=== PATIENT | female | born 1960 | race Asian ===

== ENCOUNTER 2017-07-27 08:51 | Emergency (ER) | payer OTHER ==
[~2017-07-27] VITALS: Ht 157.5 cm; Wt 62.2 kg
[~2017-07-27 08:51] MED LIST: ATEN-51 PO; INSU100C SQ; INSU300I SQ; LOVA20TA PO
[2017-07-27 08:57] VITALS: Ht 157.5 cm; Wt 62.2 kg
[2017-07-27 10:02] VITALS: BP 155/84; PULSE 82
--- NOTE | 2017-07-27 13:54 | ERD ---
ER Documentation Chief Complaint Chief Complaint Blister/wart on finger x today HPI 57-year-old female patient with a past medical history of diabetes and hypertension presents to the ED complaining of a blister or wart on her right index finger. Patient reports it slightly hurts. Reports it is slightly itchy. Denies any decrease of sensation, decreased range of motion, nausea, vomiting, injuries. Denies any fever, chills. Denies injuries or trauma. ROS All systems reviewed and are negative except as per history of present illness. Medications Home Meds Active Scripts Bacitracin* (Bacitracin Zinc Oint*) 28.35 Gm Oint, 1 APPLIC TOP BID for 5 Days, TUB APPLI TO Prov:BHUMI BEY 07/28/17 Ibuprofen* (Motrin*) 800 Mg Tab, 800 MG PO Q8 Y for PAIN AND OR ELEVATED TEMP, # 20 TAB Prov:BHUMI BEY 07/28/17 Cephalexin* (Keflex*) 500 Mg Capsule, 500 MG PO QID for 5 Days, CAP Prov:BHUMI BEY 07/28/17 Atenolol* (Atenolol*) 25 Mg Tablet, 25 MG PO DAILY, #30 TAB Prov:ABHISHEK PERRY MD 08/05/16 Reported Medications Insulin Lispro (Humalog) 100 Unit/1 Ml Cartridge, 8 UNIT SQ TID 08/04/16 Insulin Glargine,Hum.rec.anlog (Toujeo Solostar) 300 Unit/1 Ml Insuln.pen, 60 UNIT SQ QHS 02/24/16 Lovastatin* (Lovastatin*) 20 Mg Tablet, 10 MG PO HS, TAB 02/24/16 Allergies Allergies: Coded Allergies: vitamin E (d-alpha tocopherol) (Verified Allergy, Unknown, 07/27/17) PMhx/Soc Anesthesia Reaction: No Hx Neurological Disorder: No Hx Respiratory Disorders: No Hx Psychiatric Problems: No Hx Miscellaneous Medical Probl: No Hx Alcohol Use: No Hx Substance Use: No Hx Tobacco Use: No Smoking Status: Never smoker Physical Exam Vitals Vital Signs Date Time Temp Pulse Resp B/P Pulse Ox O2 Delivery O2 Flow Rate FiO2 07/27/17 10:02 82 155/84 07/27/17 08:57 97.9 73 18 176/82 99 Physical Exam Const: [id number], well-nourished. In no acute distress. Head: Atraumatic, normocephalic Eyes: Normal Conjunctiva without injection ENT: Normal external ear, nose and mouth. Neck: Full range of motion. No meningismus. Resp: Clear to auscultation bilaterally. No wheezing, rhonchi, rales, or crackles. No accessory muscle use. No retractions. Cardio: Regular rate and rhythm, no murmurs Skin: No petechiae or rashes Back: No midline tenderness. No CVA tenderness. Ext: No cyanosis, or edema. Cap refill less than 2 seconds. Distal pulses intact bilaterally. Flesh skin lesion, papule noted on the dorsal aspect of patient's right index finger, 0.5 cm in size below the PIP. No surrounding erythema or edema. No fluctuance or induration. Full range of motion of the DIP, PIP, MCP joints bilaterally. Neur: Awake and alert. Normal gait and coordination. Muscle strength 5/5. Sensation intact bilaterally. Psych: Normal Mood and Affect Procedures/MDM 57-year-old female patient with no significant past medical history presents to the ED complaining of a blister on her right finger that started earlier today. Patient is afebrile and nontoxic-appearing. Patient has normal vital signs. Differentials are likely secondary to molluscum contagiosum vs. small blister. Patient's blood pressure is 176/82. Patient reports that she just took her atenolol. Patient's blood pressure was elevated (>120/80) but appears stable without evidence of hypertension emergency or urgency. The patient was counseled about the risks of hypertension and urged to pursue outpatient monitoring and therapy within a week with their primary care physician. Low suspicion for anaphylaxis, scabies, SJS/TEN, TSS, Lyme's Disease, syphilis, RMSF , shingles, burn injury, disseminated gonorrhea chlamydia, DIC, TTP, ITP, erythema multiforme, sepsis, cellulitis, necrotizing fascitis, gangrene, meningococcemia, allergic contact dermatitis, urticaria, eczema, tinea infection , or other emergent conditions. Follow up with primary care physician in 1-2 days referral to see a word processor technician for further evaluation and treatment. Instructed patient to return to the ED sooner for any worsening symptoms. Patient's questions were answered. Patient understood and agreed with discharge plan. Patient discharged stable. Departure Diagnosis: Primary Impression: Rash and other nonspecific skin eruption Condition: Stable Patient Instructions: Molluscum Contagiosum (Adult) Referrals: [facility] YOU HAVE RECEIVED A MEDICAL SCREENING EXAM AND THE RESULTS INDICATE THAT YOU DO NOT HAVE A CONDITION THAT REQUIRES URGENT TREATMENT IN THE EMERGENCY DEPARTMENT. FURTHER EVALUATION AND TREATMENT OF YOUR CONDITION CAN WAIT UNTIL YOU ARE SEEN IN YOUR DOCTORS OFFICE WITHIN THE NEXT 1-2 DAYS. IT IS YOUR RESPONSIBILITY TO MAKE AN APPOINTMENT FOR FOLOW-UP CARE. IF YOU HAVE A PRIMARY DOCTOR --you should call your primary doctor and schedule an appointment IF YOU DO NOT HAVE A PRIMARY DOCTOR YOU CAN CALL OUR PHYSICIAN REFERRAL HOTLINE AT IF YOU CAN NOT AFFORD TO SEE A PHYSICIAN YOU CAN CHOSE FROM THE FOLLOWING [facility] [address] [facility] [address] [facility] [address] [facility] [address] [facility] [address] [facility] [facility] [address] [facility] [facility] YOU HAVE RECEIVED A MEDICAL SCREENING EXAM AND THE RESULTS INDICATE THAT YOU DO NOT HAVE A CONDITION THAT REQUIRES URGENT TREATMENT IN THE EMERGENCY DEPARTMENT. FURTHER EVALUATION AND TREATMENT OF YOUR CONDITION CAN WAIT UNTIL YOU ARE SEEN IN YOUR DOCTORS OFFICE WITHIN THE NEXT 1-2 DAYS. IT IS YOUR RESPONSIBILITY TO MAKE AN APPOINTMENT FOR FOLOW-UP CARE. IF YOU HAVE A PRIMARY DOCTOR --you should call your primary doctor and schedule and appointment IF YOU DO NOT HAVE A PRIMARY DOCTOR YOU CAN CALL OUR PHYSICIAN REFERRAL HOTLINE AT . IF YOU CAN NOT AFFORD TO SEE A PHYSICIAN YOU CAN CHOSE FROM THE FOLLOWING [facility] INSTITUTIONS: [facility] [address] [place] [address] [facility] [address] [place] [address] [facility] [address] [place] [address] [facility]/SPECIALTIES Additional Instructions: Call your primary care doctor TOMORROW for an appointment during the next 2-3 days for a referral to see a dermatolgoist.See the doctor sooner or return here if your condition worsens before your appointment time. FERNANDO TATUM PA-C Jul 27, 2017 13:54
[2017-07-28] MEDS ORDERED: CEPH-443 PO (16:07)
[2017-07-28] MEDS ORDERED: IBUP800T25 PO (16:08)
[2017-07-28] MEDS ORDERED: BACI28.34 TOP (16:09)
== END 2017-07-27 10:06 | disposition home or self-care (01) ==
LOC: FTE 08:51
DX: R21 Rash and other nonspecific skin eruption (principal); I10 Essential (primary) hypertension; E11.9 Type 2 diabetes mellitus without complications; Z79.4 Long term (current) use of insulin
CPT/HCPCS: 99283

== ENCOUNTER 2017-07-28 13:38 | Emergency (ER) | payer OTHER ==
[~2017-07-28] VITALS: Ht 157.5 cm; Wt 62.1 kg
[2017-07-28 13:45] VITALS: Ht 157.5 cm; Wt 62.1 kg
--- NOTE | 2017-07-28 15:04 | ERD ---
ER Documentation Chief Complaint Chief Complaint RT 2ND FINGER PAIN AND SWELLING, INFECTION HPI 57-year-old female presents emergency department for a bacterial/viral infection to her right index finger with swelling. Stated that she might have an infection. She was here yesterday and was advised to go to a spindraw operator. Was prescribed Keflex yesterday but she has not started taking the antibiotics yet. Stated that she was sent here by her primary care physician to have an incision and drainage. Denies headache, dizziness, blurred vision, neck pain, throat pain, difficulty swallowing, constipation, diarrhea, abdominal pain, back pain, loss of bowel bladder control, urinary symptoms, trauma, injury, falls, recent long travel, recent antibiotic use in the last 3 months, fever, chills. Allergies to vitamin E. Past medical history of diabetes. Surgical history of . Social: Works at [employer]. Denies smoking, use of alcoholic beverages, use of illegal drugs. ROS All systems reviewed and are negative except as per history of present illness. Medications Home Meds Active Scripts Bacitracin* (Bacitracin Zinc Oint*) 28.35 Gm Oint, 1 APPLIC TOP BID for 5 Days, TUB APPLI TO Prov:BHUMI BEY 07/28/17 Ibuprofen* (Motrin*) 800 Mg Tab, 800 MG PO Q8 Y for PAIN AND OR ELEVATED TEMP, # 20 TAB Prov:BHUMI BEY 07/28/17 Cephalexin* (Keflex*) 500 Mg Capsule, 500 MG PO QID for 5 Days, CAP Prov:BHUMI BEY 07/28/17 Atenolol* (Atenolol*) 25 Mg Tablet, 25 MG PO DAILY, #30 TAB Prov:ABHISHEK PERRY MD 08/05/16 Reported Medications Insulin Lispro (Humalog) 100 Unit/1 Ml Cartridge, 8 UNIT SQ TID 08/04/16 Insulin Glargine,Hum.rec.anlog (Doris Carreon) 300 Unit/1 Ml Insuln.pen, 60 UNIT SQ QHS 02/24/16 Lovastatin* (Lovastatin*) 20 Mg Tablet, 10 MG PO HS, TAB 02/24/16 Allergies Allergies: Coded Allergies: vitamin E (d-alpha tocopherol) (Verified Allergy, Unknown, 07/27/17) PMhx/Soc Anesthesia Reaction: No Hx Neurological Disorder: No Hx Respiratory Disorders: No Hx Psychiatric Problems: No Hx Miscellaneous Medical Probl: No Hx Alcohol Use: No Hx Substance Use: No Hx Tobacco Use: No Physical Exam Vitals Vital Signs Date Time Temp Pulse Resp B/P Pulse Ox O2 Delivery O2 Flow Rate FiO2 07/28/17 13:45 98.1 87 16 144/75 98 Physical Exam Const: [] Head: Atraumatic Eyes: Normal Conjunctiva ENT: Normal External Ears, Nose and Mouth. Neck: Full range of motion..~ No meningismus. Resp: Clear to auscultation bilaterally Cardio: Regular rate and rhythm, no murmurs Abd: Soft, non tender, non distended. Normal bowel sounds Skin: No petechiae or rashes. Dorsal area of the proximal phalanx of the right index finger has a blister that is measuring approximately 1 cm x 1 cm in diameter with greenish/yellowish fluid inside. No evidence of tendon injury. Has good and full function of the right hand. Right wrist is unremarkable. Right elbow is unremarkable. Right shoulder is unremarkable. Left upper extremity is unremarkable. No neurovascular deficits. Back: No midline or flank tenderness Ext: No cyanosis, or edema Neur: Awake and alert Psych: Normal Mood and Affect Results 24 hrs Current Medications Medications (Trade) Dose Ordered Sig/Paulina Route PRN Reason Start Time Stop Time Status Last Admin Dose Admin Lidocaine (Xylocaine 1% (Mdv) 20 ml) 20 ml ONCE ONCE SC 07/28/17 16:00 07/28/17 16:01 DC Bacitracin (Bacitracin Oint (Ud)) 1 applic ONCE ONCE TOP 07/28/17 16:30 07/28/17 16:31 07/28/17 16:14 Procedures/MDM 57-year-old female presents emergency department for a bacterial/viral infection to her right index finger with swelling. Stated that she might have an infection. She was here yesterday and was advised to go to a spindraw operator. Was prescribed Keflex yesterday but she has not started taking the antibiotics yet. Stated that she was sent here by her primary care physician to have an incision and drainage. Denies headache, dizziness, blurred vision, neck pain, throat pain, difficulty swallowing, constipation, diarrhea, abdominal pain, back pain, loss of bowel bladder control, urinary symptoms, trauma, injury, falls, recent long travel, recent antibiotic use in the last 3 months, fever, chills. Allergies to vitamin E. Past medical history of diabetes. Surgical history of . Social: Works at [employer]. Denies smoking, use of alcoholic beverages, use of illegal drugs. Physical exam: Dorsal area of the proximal phalanx of the right index finger has a blister that is measuring approximately 1 cm x 1 cm in diameter with greenish/yellowish fluid inside. No evidence of tendon injury. Has good and full function of the right hand. Right wrist is unremarkable. Right elbow is unremarkable. Right shoulder is unremarkable. Left upper extremity is unremarkable. No neurovascular deficits. Patient agreed with the treatment, plan of care, follow-up care. Patient is insisting for me to drain this. Procedure: Drainage of the Molluscum Contagiosum. Betadine prep. Lidocaine 1% 2 cc digital block. Drained approximately 0.7 cc of yellowish to greenish discharge. Bacitracin ointment applied. Dressing applied. Reevaluation: Good and full function of the right hand. No evidence of tendon injury. No neurovascular deficits. Final diagnosis: Molluscum Contagiosum (Adult). Bacterial skin infection. Prescription: Prescribed Keflex. Keflex. Motrin. Bacitracin ointment. Follow-up with PCP in the next 24-48 hours. PCP to refer patient to spindraw operator in the next 24-48 hours. Come back here in the emergency department for any new symptoms or any worsening of symptoms. All questions and concerns are answered. Patient verbalized understanding and agreed with the plan of care. Hemodynamically stable on discharge. Departure Diagnosis: Primary Impression: Bacterial skin infection Condition: Stable Additional Instructions: Follow-up with PCP in the next 24-48 hours. PCP to refer patient to spindraw operator in the next 24-48 hours. Come back here in the emergency department for any new symptoms or any worsening of symptoms. All questions and concerns are answered. Patient verbalized understanding and agreed with the plan of care. BHUMI BEY Jul 28, 2017 15:04
[2017-07-28] MEDS ORDERED: LIDOCAINE 1% (MDV) 20 ML INJ SC ONE (16:00)
[2017-07-28] MEDS ORDERED: CEPH-443 PO (16:07)
[2017-07-28] MEDS ORDERED: IBUP800T25 PO (16:08)
[2017-07-28] MEDS ORDERED: BACI28.34 TOP (16:09)
[2017-07-28] MEDS ORDERED: BACITRACIN 0.9 GM OINT TOP ONE (16:30)
== END 2017-07-28 16:24 | disposition home or self-care (01) ==
LOC: FTE 13:38
DX: B08.1 Molluscum contagiosum (principal); E11.9 Type 2 diabetes mellitus without complications; Z79.4 Long term (current) use of insulin
CPT/HCPCS: 10060; Z7502; Z7610

== ENCOUNTER 2017-12-03 21:26 | Emergency (ER) | END 2017-12-04 02:09 | disposition home or self-care (01) ==

== ENCOUNTER 2018-03-07 09:10 | Day surgery (SDC) | END 2018-03-07 13:42 | disposition home or self-care (01) ==

== ENCOUNTER 2019-01-02 06:59 | Emergency (ER) | payer OTHER ==
[~2019-01-02] VITALS: Ht 157.5 cm; Wt 59.1 kg
[~2019-01-02 06:59] MED LIST changes: +INSU100I33 SC; -INSU300I SQ
[2019-01-02 07:01] VITALS: Ht 157.5 cm; Wt 59.1 kg
[2019-01-02] MEDS ORDERED: SOD CHLORIDE 0.9% 1,000 ML IV STA (07:12)
[2019-01-02] MEDS ORDERED: ONDANSETRON 4 MG INJ IV STA ×2 (07:12→10:13)
[2019-01-02] MEDS ORDERED: LIDOCAINE/MYLANTA 40 ML BTL PO STA (07:12)
[2019-01-02] MEDS ORDERED: PANTOPRAZOLE 40 MG INJ IV ONE (07:30)
[2019-01-02] MEDS ORDERED: morphine 4 MG/ML VIAL IV STA (07:37)
[2019-01-02] MEDS ORDERED: HYDROmorphONE 2 MG/ML SYG IV STA (09:07)
[2019-01-02] MEDS ORDERED: KETOROLAC 30 MG INJ IV STA (09:58)
[2019-01-02] MEDS ORDERED: IBUP-1542 PO (10:01)
[2019-01-02] MEDS ORDERED: NALO4SPR NS (10:01)
[2019-01-02] MEDS ORDERED: HYDR-3980 PO (10:01)
[2019-01-02] MEDS ORDERED: TAMS-14 PO (10:01)
--- NOTE | 2019-01-02 10:03 | ERD ---
ER Documentation Chief Complaint Chief Complaint epigastric burning pain,vomiting, hx diabetes HPI Patient is a 58-year-old female with hypertension and diabetes who presents with vomiting and abdominal pain. She says "I think I have food poisoning". Patient said the symptoms started at 3 AM. The patient feels tired. She has had no treatment as of yet. She has no fevers. She has never had this before. Upon review of old medical records this is the patient's eighth visit to the ER since 2014. Her primary doctor is Dr. Galvin. ROS All systems reviewed and are negative except as per history of present illness. Medications Home Meds Active Scripts Tamsulosin Hcl* (Flomax*) 0.4 Mg Cap.er.24h, 0.4 MG PO QPM, #30 CAP Prov:KALI BUENROSTRO MD 01/02/19 Naloxone HCl nasal spray (Narcan 4 mg/0.1 mL nasal) 4 Mg [place], 4 MG NS .Q2-3MIN for OPIOID OVERDOSE, #2 SPRAY 0 Refills [place]xton 0.1 mL into one nostril. Repeat with second device into other nostril after 2-3 minutes if no or minimal response Prov:KALI BUENROSTRO MD 01/02/19 Hydrocodone/Acetaminophen ([place] 10-325 Tablet) 1 Each Tablet, 1 TAB PO Q6H PRN for PAIN, #7 TAB Prov:KALI BUENROSTRO MD 01/02/19 Ibuprofen* (Motrin*) 600 Mg Tab, 600 MG PO Q6H PRN for PAIN AND OR ELEVATED TEMP, #30 TAB Prov:KALI BUENROSTRO MD 01/02/19 Reported Medications Atenolol* (Atenolol*) 25 Mg Tablet, 25 MG PO DAILY, #30 TAB 03/07/18 Insulin Glargine,Hum.rec.anlog (Basaglar Kwikpen U-100) 100 Unit/1 Ml Insuln.pen, 70 UNIT SC, EA 03/07/18 Insulin Lispro (Humalog) 100 Unit/1 Ml Cartridge, 8 UNIT SQ TID 08/04/16 Lovastatin* (Lovastatin*) 20 Mg Tablet, 10 MG PO HS, TAB 02/24/16 Allergies Allergies: Coded Allergies: vitamin E (d-alpha tocopherol) (Verified Allergy, Unknown, 07/27/17) PMhx/Soc History of Surgery: Yes (HEMORRHOIDECTOMY, CSECTION X2) Anesthesia Reaction: No Hx Neurological Disorder: No Hx Respiratory Disorders: No Hx Cardiac Disorders: Yes (HTN, HIGH CHOLESTEROL) Hx Psychiatric Problems: No Hx Miscellaneous Medical Probl: Yes (DM) Hx Alcohol Use: No Hx Substance Use: No Hx Tobacco Use: No Smoking Status: Never smoker FmHx Family History: diabetes Physical Exam Vitals Vital Signs Date Temp Pulse Resp B/P (MAP) Pulse Ox O2 O2 Flow FiO2 Time Delivery Rate 01/02/19 76 17 182/75 99 Room Air 08:54 (110) 01/02/19 97.3 60 18 160/78 100 07:01 (105) Physical Exam Const: Moderate distress Head: Atraumatic Eyes: Normal Conjunctiva ENT: Normal External Ears, Nose and Mouth. Neck: Full range of motion. No meningismus. Resp: Clear to auscultation bilaterally Cardio: Regular rate and rhythm, no murmurs Abd: Soft, diffuse tenderness to palpation without rebound or guarding Skin: No petechiae or rashes Back: No midline or flank tenderness Ext: No cyanosis, or edema Neur: Awake and alert Psych: Normal Mood and Affect Result Diagram: 01/02/1936 01/02/19 0736 Results 24 hrs Laboratory Tests Test 01/02/19 07:35 01/02/19 07:36 01/02/19 08:12 Urine Color COLORLESS Urine Clarity CLEAR Urine pH 7.0 Urine Specific [place] 1.008 Urine Ketones TRACE mg/dL Urine Nitrite NEGATIVE mg/dL Urine Bilirubin NEGATIVE mg/dL Urine Urobilinogen NEGATIVE mg/dL Urine Leukocyte Esterase NEGATIVE [place]/ul Urine Hemoglobin NEGATIVE mg/dL Urine Glucose 2+ mg/dL Urine Total Protein NEGATIVE mg/dl White Blood Count 15.5 10^3/ul Red Blood Count 4.75 10^6/ul Hemoglobin 13.7 g/dl Hematocrit 43.4 % Mean Corpuscular Volume 91.4 fl Mean Corpuscular Hemoglobin 28.8 pg Mean Corpuscular 31.6 g/dl Hemoglobin Concent Red Cell Distribution Width 12.9 % Platelet Count 311 10^3/UL Mean Platelet Volume 10.2 fl Immature Granulocytes % 0.600 % Neutrophils % 85.7 % Lymphocytes % 9.2 % Monocytes % 4.0 % Eosinophils % 0.1 % Basophils % 0.4 % Nucleated Red Blood Cells % 0.0 /100WBC Immature Granulocytes # 0.090 10^3/ul Neutrophils # 13.3 10^3/ul Lymphocytes # 1.4 10^3/ul Monocytes # 0.6 10^3/ul Eosinophils # 0.0 10^3/ul Basophils # 0.1 10^3/ul Nucleated Red Blood Cells # 0.0 10^3/ul Sodium Level 141 mmol/L Potassium Level 3.5 mmol/L Chloride Level 104 mmol/L Carbon Dioxide Level 27 mmol/L Anion Gap 10 Blood Urea Nitrogen 11 mg/dl Creatinine 0.82 mg/dl Est Glomerular Filtrat > 60 mL/min Rate mL/min Glucose Level 239 mg/dl Calcium Level 9.5 mg/dl Total Bilirubin 0.2 mg/dl Direct Bilirubin 0.00 mg/dl Indirect Bilirubin 0.2 mg/dl Aspartate Amino 26 IU/L Transf (AST/SGOT) Alanine 24 IU/L Aminotransferase (ALT/SGPT) Alkaline Phosphatase 104 IU/L Troponin I < 0.012 ng/ml Total Protein 7.8 g/dl Albumin 4.4 g/dl Globulin 3.40 g/dl Albumin/Globulin Ratio 1.29 Lipase 53 U/L Bedside Urine pH (LAB) 7.0 Bedside Urine Protein (LAB) 2+ Bedside Urine Glucose (UA) 0.50% Bedside Urine Ketones (LAB) Negative Bedside Urine Blood 1+ Bedside Urine Nitrite (LAB) Negative Bedside Urine Leukocyte Esterase Negative (L Current Medications Medications Dose Sig/Paulina Start Time Status Last (Trade) Ordered Route PRN Stop Time Admin Dose Reason Admin Sodium 1,000 ml @ Q1H STAT 01/02/19 DC 01/02/19 Chloride 1,000 mls/hr IV 07:12 07:46 01/02/19 08:11 Ondansetron 4 mg ONCE STAT 01/02/19 DC 01/02/19 HCl (Zofran IV 07:12 07:46 Inj) 01/02/19 07:13 40 ml ONCE STAT 01/02/19 DC 01/02/19 Miscellaneous PO 07:12 07:46 Medication 01/02/19 07:13 (Gi Cocktail (2)) 40 mg ONCE ONCE 01/02/19 DC 01/02/19 Pantoprazole IV 07:30 07:46 (Protonix 01/02/19 07:31 Iv) Morphine 4 mg ONCE STAT 01/02/19 DC 01/02/19 Sulfate IV 07:37 07:46 (morphine) 01/02/19 07:38 1 mg ONCE STAT 01/02/19 DC 01/02/19 Hydromorphone IV 09:07 09:14 HCl 01/02/19 09:08 (Dilaudid) Ketorolac 30 mg ONCE STAT 01/02/19 DC 01/02/19 Tromethamine IV 09:58 10:26 (Toradol) 01/02/19 10:00 Ondansetron 4 mg ONCE STAT 01/02/19 DC 01/02/19 HCl (Zofran IV 10:13 10:26 Inj) 01/02/19 10:14 Procedures/MDM EKG read by me: Rate/Rhythm: Regular rate and rhythm at a rate of 69 Intervals: Normal Impression: No evidence of ischemia or arrhythmia Ultrasound of the gallbladder shows no surgical process per radiology. CT abdomen pelvis shows a 3 mm obstructing kidney stone per radiology Patient is a 58-year-old female presents with abdominal pain and vomiting. She was found to have an obstructing kidney stone which will likely pass on its own given the size. There is no sign of infection at this time. She feels better after treatment with pain medication and Zofran. I do not believe the patient requires admission to the hospital at this time. The patient will be given information for Dr. Brewer. She will be given a prescription for ibuprofen, [place], Narcan, and Flomax. She can return for any worsening symptoms. I doubt appendicitis, cholecystitis, pancreatitis, or bowel obstruction. Departure Diagnosis: Primary Impression: Kidney stone Additional Impression: Abdominal pain Abdominal location: generalized Qualified Codes: R10.84 - Generalized abdominal pain Condition: Fair Patient Instructions: Kidney Stone W/ Colic Referrals: ENRIQUETA BREWER MD Additional Instructions: SPECIALIST: YOU HAVE A MEDICAL CONDITION WHICH REQUIRES YOU TO SEE A SPECIALIST WITHIN THE NEXT 1-2 DAYS. PLEASE FOLLOW UP WITH YOUR PRIMARY PHYSICIAN FOR REFFERAL.IF YOU DO NOT HAVE A PRIMARY CARE PHYSICIAN AND/OR YOU CAN NOT AFFORD TO SEE A PHYSICIAN THE FOLLOWING RESOURCES HAVE BEEN SUPPLIED TO YOU. IT IS YOUR RESPONSIBILITY TO BE SEEN BY THE SPECIALIST KALI BUENROSTRO MD Jan 02, 2019 10:03
[2019-01-02 11:07] VITALS: BP 159/76; PULSE 92; RESP 17
== END 2019-01-02 11:08 | disposition home or self-care (01) ==
LOC: E/R 06:59
DX: N20.0 Calculus of kidney (principal); E11.9 Type 2 diabetes mellitus without complications; I10 Essential (primary) hypertension; Z79.4 Long term (current) use of insulin
CPT/HCPCS: 36415; 74176; 76705; 80053; 81003; 83690; 84484; 85025; 93005; 96374; 96375; 96376; C9113; J1170; J1885; J2270; J2405; J7030; Z7502; Z7610

== ENCOUNTER 2019-01-03 16:45 | Inpatient (IN) | payer OTHER ==
[~2019-01-03] VITALS: Ht 157.5 cm; Wt 61.3 kg
[~2019-01-03 16:45] MED LIST changes: +HYDR-3980 PO; +IBUP-1542 PO; +NALO4SPR NS; +TAMS-14 PO
[2019-01-03 21:27] VITALS: PULSE 121
[2019-01-03 21:35] VITALS: BP 161/67; PULSE 118; RESP 18
[2019-01-03 22:05] VITALS: Ht 157.5 cm; Wt 61.3 kg
[2019-01-03] MEDS ORDERED: HYDROCODONE/APAP (5/325) TAB PO PRN ×2 (22:30)
[2019-01-03] MEDS ORDERED: NACL 0.9% 3 ML SYG IV SCH (22:30)
[2019-01-03] MEDS: ACETAMINOPHEN 325 MG TAB PO PRN (22:57)
[2019-01-03] MEDS: SOD CHLORIDE 0.9% 1,000 ML IV SCH (22:58)
[2019-01-03] MEDS ORDERED: ONDANSETRON 4 MG INJ IV PRN (23:00)
[2019-01-03] MEDS ORDERED: DEXTROSE 50% 50 ML SYRINGE IV PRN ×2 (23:30)
[2019-01-03] MEDS ORDERED: GLUCAGON 1 MG INJ IM PRN (23:30)
[2019-01-03] MEDS ORDERED: GLUCOSE GEL 15 GRAM TUBE PO PRN ×2 (23:30)
[2019-01-03] MEDS ORDERED: GLUCOSE GEL 15 GRAM TUBE BUCCAL PRN (23:30)
[2019-01-03] MEDS: INSULIN ASPART [NOVOLOG] 3 ML PEN SC SCH (23:49)
[2019-01-03] MEDS: INSULIN GLARGINE [LANTus] (100 UNITS/ML) SYG SC SCH (23:49)
--- NOTE | 2019-01-03 23:58 | HP ---
Date/Time of Note Date/Time of Note DATE: 01/03/19 TIME: 23:58 Assessment/Plan VTE Prophylaxis Pharmacological prophylaxis: heparin Assessment/Plan Assessment/Plan 1. Left obstructive ureteral vesicle stone, with hydroureteronephrosis -IV fluid -IV antibiotic -Strain urine -Flomax -Urology consult 2. Sepsis: Secondary to left-sided pyelonephritis -See #1 -Follow-up urine culture result 3. Insulin-dependent diabetes: Adjust insulin as needed 4. Hypertension: Adjust antihypertensive as needed Results 24hrs Laboratory Tests Test 01/03/19 21:52 01/03/19 23:43 Bedside Glucose 224 H 221 H HPI/ROS Admit Date/Time Admit Date/Time Jan 03, 2019 at 21:01 Hx of Present Illness This is a 58-year-old female with a history of hypertension, insulin-dependent diabetes who initially presented on outside hospital complaining of left flank pain. Patient was found to be febrile and had a UTI. She was transferred to [facility] for insurance reason. She was actually here a day prior with similar symptoms. At that time CT abdomen/pelvis shows obstructive 3 mm stone in the left urethrovesical junction with mild hydroureteronephrosis and moderate perinephric fat stranding. Patient was discharged from the ER that time. Patient has been febrile and tachycardic here. PMH/Family/Social Past Medical History Medical History: other (See HPI) Medications Current Medications Sodium Chloride 1,000 ml @ 100 mls/hr Q10H IV Last administered on 01/03/19at 22:58; Admin Dose 100 MLS/HR; Start 01/03/19 at 22:28 IV Flush (NS 3 ml) 3 ml PER PROTOCOL IV ; Start 01/03/19 at 22:30 Acetaminophen (Tylenol Tab) 650 mg Q6H PRN PO .PAIN 1-3 OR TEMP Last administered on 01/03/19at 22:57; Admin Dose 650 MG; Start 01/03/19 at 22:30 Acetaminophen/ Hydrocodone Bitart ([place] (5/325)) 1 tab Q6H PRN PO .PAIN 4-6; Start 01/03/19 at 22:30 Acetaminophen/ Hydrocodone Bitart ([place] (5/325)) 2 tab Q6H PRN PO .PAIN 7-10; Start 01/03/19 at 22:30 Atenolol (Tenormin) 25 mg DAILY PO ; Start 01/04/19 at 09:00 Tamsulosin HCl (Flomax) 0.4 mg QPM PO ; Start 01/04/19 at 21:00 Atorvastatin Calcium (Lipitor) 10 mg DAILY@21 PO ; Start 01/04/19 at 21:00 Diagnostic Test (Pha) (Accu-Chek) 1 ea 02 XX ; Start 01/04/19 at 02:00 Insulin Glargine (Lantus) 18 units DAILY@1999 SC Last administered on 01/03/19at 23:49; Admin Dose 18 UNITS; Start 01/03/19 at 23:00 Insulin Aspart (Novolog Insulin Pen) 5 unit WITH MEALS SC ; Start 01/04/19 at 07:55 Insulin Aspart (Novolog Insulin Pen) NOVOLOG *MODERATE* ALGORITHM WITH MEALS BEDTIME SC ; Start 01/04/19 at 07:55 Ondansetron HCl (Zofran Inj) 4 mg Q6H PRN IV NAUSEA AND/OR VOMITING; Start 01/03/19 at 23:00 Ceftriaxone Sodium 50 ml @ 100 mls/hr DAILY IVPB ; Start 01/04/19 at 09:00 Miscellaneous Information 1 ea NOTE XX ; Start 01/03/19 at 23:30 Glucose (Glutose) 15 gm Q15M PRN PO DECREASED GLUCOSE; Start 01/03/19 at 23:30 Glucose (Glutose) 22.5 gm Q15M PRN PO DECREASED GLUCOSE; Start 01/03/19 at 23:30 Dextrose (D50w Syringe) 25 ml Q15M PRN IV DECREASED GLUCOSE; Start 01/03/19 at 23:30 Dextrose (D50w Syringe) 50 ml Q15M PRN IV DECREASED GLUCOSE; Start 01/03/19 at 23:30 Glucagon (Glucagen) 1 mg Q15M PRN IM DECREASED GLUCOSE; Start 01/03/19 at 23:30 Glucose (Glutose) 15 gm Q15M PRN BUCCAL DECREASED GLUCOSE; Start 01/03/19 at 23:30 Coded Allergies: vitamin E (d-alpha tocopherol) (Verified Allergy, Unknown, 07/27/17) Past Surgical History Past Surgical Hx: other (See HPI) Family History Significant Family History: no pertinent family hx Social History Alcohol Use: none Drug Use: none Exam/Review of Systems Vital Signs Vitals Vital Signs Date Temp Pulse Resp B/P (MAP) Pulse Ox O2 O2 Flow FiO2 Time Delivery Rate 01/03/19 101.4 23:43 01/03/19 121 21:27 Exam Constitutional: other (No acute distress) Head: normocephalic, atraumatic Eyes: EOMI, PERRL Respiratory: clear to auscultation, normal air movement Cardiovascular: other (Tachycardic regular rhythm) Gastrointestinal: soft, other (Left flank pain) Extremities: normal pulses MISA GOLDMAN MD Jan 03, 2019 23:58
[2019-01-04] VITALS (10 sets, daily range): BP systolic 105–156; BP diastolic 60–71; PULSE 69–114; RESP 18–20
[2019-01-04] MEDS: ACCU-CHEK XX SCH (01:59)
[2019-01-04] MEDS: ACETAMINOPHEN 325 MG TAB PO PRN ×2 (08:01→17:55)
[2019-01-04] MEDS: ATENOLOL 25 MG TAB PO SCH (08:14)
[2019-01-04] MEDS: SOD CHLORIDE 0.9% 1,000 ML IV SCH ×2 (08:16→17:56)
[2019-01-04] MEDS: INSULIN ASPART [NOVOLOG] 3 ML PEN SC SCH ×8 (08:27→21:00)
[2019-01-04] MEDS ORDERED: VANCOMYCIN IV PER PHARMACY XX SCH (09:00)
[2019-01-04] MEDS ORDERED: SOD CHLORIDE 0.9% 1,000 ML IV ONE (09:00)
[2019-01-04] MEDS ORDERED: CEFTRIAXONE 1 GM/50 ML (PMX) 50 ML IVPB SCH (09:00)
[2019-01-04] MEDS: PIPER-TAZO 3.375 GM IV (PMX) 100 ML IVPB SCH ×4 (10:48→23:57)
[2019-01-04] MEDS ORDERED: VANCOMYCIN HCL 1.25 GM in SOD CHLORIDE 0.9% 250 ML IVPB SCH (11:00)
--- NOTE | 2019-01-04 11:57 | PN ---
Date/Time of Note Date/Time of Note DATE: 01/04/19 TIME: 11:52 Assessment/Plan VTE Prophylaxis Risk score (from Ns)>0 risk: 1 SCD applied (from Nsg): Yes Pharmacological prophylaxis: other Lines/Catheters IV Catheter Type (from Nrsg): Peripheral IV Assessment/Plan Hospital Course S: Patient with fevers, on antibiotics, waiting to be seen by urology team. O: VS- see below PE: Constitutional: lying in bed, no acute distress Head: normocephalic, atraumatic Eyes: EOMI, PERRL Respiratory: clear to auscultation, normal air movement Cardiovascular: regular rhythm Gastrointestinal: soft, other (Left flank pain) Extremities: normal pulses CT scan abdomen pelvis January 02, 2019: IMPRESSION: 1. Obstructive 3 mm stone in the left ureterovesical junction resulting in mild left-sided hydroureteronephrosis with mild to moderate perinephric fat stranding . 2. Additional 3 mm stone is seen in the upper pole of left kidney. 3. Coronary artery calcifications. 4. Multiple colonic diverticulosis. 5. Mild to moderate degenerative changes of the right hip. Assessment/Plan: 58-year-old female who presents with: 1. Left obstructive ureteral vesicle stone, with hydroureteronephrosis. Urology team consulted -Continue IV fluid and IV antibiotic -Strain urine -Flomax -Follow-up recommendations from urology consult 2. Sepsis: Secondary to left-sided pyelonephritis. Patient with fevers, on antibiotic -See #1 -Follow-up urine culture result 3. Insulin-dependent diabetes: Sugars stable -Monitor, follow-up A1c, adjust insulin as needed 4. Hypertension: Stable -adjust antihypertensive as needed Result Diagram: 01/04/1942101/04/19421 Results 24hrs Laboratory Tests Test 01/03/19 21:52 01/03/19 22:24 01/03/19 23:15 01/03/19 23:43 Bedside Glucose 224 H 221 H Urine Color STRAW Urine Clarity CLEAR Urine pH 6.0 Urine Specific 1.010 [place] Urine Ketones 1+ H Urine Nitrite NEGATIVE Urine Bilirubin NEGATIVE Urine Urobilinogen NEGATIVE Urine Leukocyte 1+ H Esterase Urine Microscopic 9 H RBC Urine Microscopic 29 H WBC Urine Bacteria FEW A Urine Hemoglobin 2+ H Urine Glucose 2+ H Urine Total Protein 1+ H Lactic Acid Level 1.7 Test 01/04/19 01:58 01/04/19 04:22 01/04/19 04:43 01/04/19 07:51 Bedside Glucose 216 190 White Blood Count 10.4 # Red Blood Count 3.61 #L Hemoglobin 10.4 #L Hematocrit 32.6 #L Mean Corpuscular 90.3 Volume Mean Corpuscular 28.8 L Hemoglobin Mean Corpuscular 31.9 L Hemoglobin Concent Red Cell 13.4 Distribution Width Platelet Count 171 # Mean Platelet Volume 10.5 H Immature 0.400 Granulocytes % Neutrophils % Segmented 71 Neutrophils % (Manual) Band Neutrophils % 24 H (Manual) Lymphocytes % Lymphocytes % 3 L (Manual) Monocytes % Monocytes % (Manual) 1 Eosinophils % Basophils % Myelocytes % 1 H (Manual) Nucleated Red Blood 1 H Cells % Immature 0.040 H Granulocytes # Neutrophils # Neutrophils # 7.6 H (Manual) Band Neutrophils # 2.4 H Lymphocytes (Manual) 0.3 L Lymphocytes # Monocytes # Monocytes # (Manual) 0.1 L Eosinophils # Basophils # Myelocytes # 0.1 H Nucleated Red Blood Cells # Platelet Estimate NORMAL Anisocytosis 1+ Sodium Level 140 Potassium Level 3.8 Chloride Level 110 Carbon Dioxide Level 22 Anion Gap 8 Blood Urea Nitrogen 15 Creatinine 0.92 Est Glomerular > 60 Filtrat Rate mL/min Glucose Level 200 Lactic Acid Level 1.4 Calcium Level 7.7 L Magnesium Level 1.8 Total Bilirubin 0.2 Direct Bilirubin 0.00 Indirect Bilirubin 0.2 Aspartate Amino 24 Transf (AST/SGOT) Alanine 20 Aminotransferase (AL T/SGPT) Alkaline Phosphatase 52 Total Protein 4.8 #L Albumin 2.5 #L Globulin 2.30 Albumin/Globulin 1.08 Ratio Triglycerides Level 139 Cholesterol Level 102 LDL Cholesterol, 30 Calculated HDL Cholesterol 44 Cholesterol/HDL 2.3 Ratio Hemoglobin A1c 6.4 H Exam/Review of Systems Exam Vitals Vital Signs Date Temp Pulse Resp B/P (MAP) Pulse Ox O2 O2 Flow FiO2 Time Delivery Rate 01/04/19 99.1 08:46 01/04/19 110 08:38 01/04/19 20 135/66 94 Room Air 07:35 (89) Intake and Output 01/03/19 01/03/19 01/04/19 1515:00 23:00 07:00 IntakeIntake Total 1120 ml OutputOutput Total 700 ml BalanceBalance 420 ml Results Results 24hrs Laboratory Tests Test 01/03/19 21:52 01/03/19 22:24 01/03/19 23:15 01/03/19 23:43 Bedside Glucose 224 H 221 H Urine Color STRAW Urine Clarity CLEAR Urine pH 6.0 Urine Specific 1.010 [place] Urine Ketones 1+ H Urine Nitrite NEGATIVE Urine Bilirubin NEGATIVE Urine Urobilinogen NEGATIVE Urine Leukocyte 1+ H Esterase Urine Microscopic 9 H RBC Urine Microscopic 29 H WBC Urine Bacteria FEW A Urine Hemoglobin 2+ H Urine Glucose 2+ H Urine Total Protein 1+ H Lactic Acid Level 1.7 Test 01/04/19 01:58 01/04/19 04:22 01/04/19 04:43 01/04/19 07:51 Bedside Glucose 216 190 White Blood Count 10.4 # Red Blood Count 3.61 #L Hemoglobin 10.4 #L Hematocrit 32.6 #L Mean Corpuscular 90.3 Volume Mean Corpuscular 28.8 L Hemoglobin Mean Corpuscular 31.9 L Hemoglobin Concent Red Cell 13.4 Distribution Width Platelet Count 171 # Mean Platelet Volume 10.5 H Immature 0.400 Granulocytes % Neutrophils % Segmented 71 Neutrophils % (Manual) Band Neutrophils % 24 H (Manual) Lymphocytes % Lymphocytes % 3 L (Manual) Monocytes % Monocytes % (Manual) 1 Eosinophils % Basophils % Myelocytes % 1 H (Manual) Nucleated Red Blood 1 H Cells % Immature 0.040 H Granulocytes # Neutrophils # Neutrophils # 7.6 H (Manual) Band Neutrophils # 2.4 H Lymphocytes (Manual) 0.3 L Lymphocytes # Monocytes # Monocytes # (Manual) 0.1 L Eosinophils # Basophils # Myelocytes # 0.1 H Nucleated Red Blood Cells # Platelet Estimate NORMAL Anisocytosis 1+ Sodium Level 140 Potassium Level 3.8 Chloride Level 110 Carbon Dioxide Level 22 Anion Gap 8 Blood Urea Nitrogen 15 Creatinine 0.92 Est Glomerular > 60 Filtrat Rate mL/min Glucose Level 200 Lactic Acid Level 1.4 Calcium Level 7.7 L Magnesium Level 1.8 Total Bilirubin 0.2 Direct Bilirubin 0.00 Indirect Bilirubin 0.2 Aspartate Amino 24 Transf (AST/SGOT) Alanine 20 Aminotransferase (AL T/SGPT) Alkaline Phosphatase 52 Total Protein 4.8 #L Albumin 2.5 #L Globulin 2.30 Albumin/Globulin 1.08 Ratio Triglycerides Level 139 Cholesterol Level 102 LDL Cholesterol, 30 Calculated HDL Cholesterol 44 Cholesterol/HDL 2.3 Ratio Hemoglobin A1c 6.4 H Medications Medication Current Medications Sodium Chloride 1,000 ml @ 100 mls/hr Q10H IV Last administered on 01/04/19 08:16; Admin Dose 100 MLS/HR; Start 01/03/19 at 22:28 IV Flush (NS 3 ml) 3 ml PER PROTOCOL IV ; Start 01/03/19 at 22:30 Acetaminophen (Tylenol Tab) 650 mg Q6H PRN PO .PAIN 1-3 OR TEMP Last administered on 01/04/19 08:01; Admin Dose 650 MG; Start 01/03/19 at 22:30 Acetaminophen/ Hydrocodone Bitart ([place] (5/325)) 1 tab Q6H PRN PO .PAIN 4-6; Start 01/03/19 at 22:30 Acetaminophen/ Hydrocodone Bitart ([place] (5/325)) 2 tab Q6H PRN PO .PAIN 7-10; Start 01/03/19 at 22:30 Atenolol (Tenormin) 25 mg DAILY PO Last administered on 01/04/19 08:14; Admin Dose 25 MG; Start 01/04/19 at 09:00 Tamsulosin HCl (Flomax) 0.4 mg QPM PO ; Start 01/04/19 at 21:00 Atorvastatin Calcium (Lipitor) 10 mg DAILY@21 PO ; Start 01/04/19 at 21:00 Diagnostic Test (Pha) (Accu-Chek) 1 ea 02 XX Last administered on 01/04/19 01:59; Admin Dose 1 EA; Start 01/04/19 at 02:00 Insulin Glargine (Lantus) 18 units DAILY@2000 SC Last administered on 01/03/19 23:49; Admin Dose 18 UNITS; Start 01/03/19 at 23:00 Insulin Aspart (Novolog Insulin Pen) 5 unit WITH MEALS SC Last administered on 01/04/19 08:27; Admin Dose 5 UNIT; Start 01/04/19 at 07:55 Insulin Aspart (Novolog Insulin Pen) NOVOLOG *MODERATE* ALGORITHM WITH MEALS BEDTIME SC Last administered on 01/04/19 08:27; Admin Dose 4 UNIT; Start 01/04/19 at 07:55 Ondansetron HCl (Zofran Inj) 4 mg Q6H PRN IV NAUSEA AND/OR VOMITING; Start 01/03/19 at 23:00 Miscellaneous Information 1 ea NOTE XX ; Start 01/03/19 at 23:30 Glucose (Glutose) 15 gm Q15M PRN PO DECREASED GLUCOSE; Start 01/03/19 at 23:30 Glucose (Glutose) 22.5 gm Q15M PRN PO DECREASED GLUCOSE; Start 01/03/19 at 23:30 Dextrose (D50w Syringe) 25 ml Q15M PRN IV DECREASED GLUCOSE; Start 01/03/19 at 23:30 Dextrose (D50w Syringe) 50 ml Q15M PRN IV DECREASED GLUCOSE; Start 01/03/19 at 23:30 Glucagon (Glucagen) 1 mg Q15M PRN IM DECREASED GLUCOSE; Start 01/03/19 at 23:30 Glucose (Glutose) 15 gm Q15M PRN BUCCAL DECREASED GLUCOSE; Start 01/03/19 at 2 3:30 Vancomycin HCl (Vanco Iv Per Pharmacy) VANCOMYCIN PER PHARMACY PER PROTOCOL XX ; Start 01/04/19 at 09:00 Piperacillin Sod/ Tazobactam Sod 100 ml @ 200 mls/hr Q6 IVPB Last administered on 01/04/19at 10:48; Admin Dose 200 MLS/HR; Start 01/04/19 at 10:00 Vancomycin HCl 1.25 gm/Sodium Chloride 250 ml @ 83.333 mls/ hr ONCE IVPB ; Start 01/04/19 at 11:00; Stop 01/04/19 at 20:00 Vancomycin/Sodium Chloride 250 ml @ 125 mls/hr Q12H IVPB ; Start 01/04/19 at 23:00 ALINE RICHARDS Jan 04, 2019 11:57
--- NOTE | 2019-01-04 18:41 | CONS ---
Assessment/Plan Assessment/Plan Hospital Course (Demo Recall) 58-year-old female presented to the emergency room on 01/02/2019 with left flank pain nausea and vomiting. She underwent a CT scan of the abdomen and pelvis and that showed a 3 mm stone at the left ureterovesical junction.The patient was sent home on tamsulosin and antibiotic. The patient was having fever and went to the emergency room on 01/03/2019 at [facility] and was transferred here because of her insurance. The patient states she had no pain since her visit to the emergency room however she does have a headache and she has been coughing and having fever. Since her admission the patient did not pass the stone. She has been having some cough and fever. Impression: 3 mm stone at the left ureterovesical junction. The patient should be able to pass it on her own. She may also have urinary tract infection. She also is coughing. Plan: Continue the tamsulosin and the intravenous antibiotics. Strain the urine for stones. Get a KUB and pelvic ultrasound to see if the stone could be visualized with ultrasound of the bladder. Do a chest x-ray. Also urine culture. Consultation Date/Type/Reason Admit Date/Time Jan 03, 2019 at 21:01 Date of Consultation: Jan 04, 2019 Type of Consult Urology Reason for Consultation Distal left ureteral stone Requesting Provider: ALINE RICHARDS Date/Time of Note DATE: 01/04/19 TIME: 18:29 Hx of Present Illness 58-year-old female presented to the emergency room on 01/02/2019 with left flank pain nausea and vomiting. She underwent a CT scan of the abdomen and pelvis and that showed a 3 mm stone at the left ureterovesical junction.The patient was sent home on tamsulosin and antibiotic. The patient was having fever and went to the emergency room on 01/03/2019 at [facility] and was transferred here because of her insurance. The patient states she had no pain since her visit to the emergency room however she does have a headache and she has been coughing and having fever. Constitutional: febrile Eyes: no complaints ENT: no complaints Respiratory: other (Coughing) Cardiovascular: No chest pain Gastrointestinal: nausea (2 days earlier. No nausea or vomiting at the present) Genitourinary: flank pain (Left side); No dysuria Musculoskeletal: no complaints Skin: no complaints Neurologic: no complaints Endocrine: no complaints Psychological: no complaints Immunologic: no complaints Past Medical History Medical History: diabetes, high cholesterol, hypertension Home Meds Active Scripts Tamsulosin Hcl* (Flomax*) 0.4 Mg Cap.er.24h, 0.4 MG PO QPM, #30 CAP Prov:KALI BUENROSTRO MD 01/02/19 Naloxone HCl nasal spray (Narcan 4 mg/0.1 mL nasal) 4 Mg [place], 4 MG NS .Q2-3MIN for OPIOID OVERDOSE, #2 SPRAY 0 Refills [place] 0.1 mL into one nostril. Repeat with second device into other nostril after 2-3 minutes if no or minimal response Prov:KALI BUENROSTRO MD 01/02/19 Hydrocodone/Acetaminophen ([place] 10-325 Tablet) 1 Each Tablet, 1 TAB PO Q6H PRN for PAIN, #7 TAB Prov:KALI BUENROSTRO MD 01/02/19 Ibuprofen* (Motrin*) 600 Mg Tab, 600 MG PO Q6H PRN for PAIN AND OR ELEVATED TEMP, #30 TAB Prov:KALI BUENROSTRO MD 01/02/19 Reported Medications Atenolol* (Atenolol*) 25 Mg Tablet, 25 MG PO DAILY, #30 TAB 03/07/18 Insulin Glargine,Hum.rec.anlog (Basaglar Kwikpen U-100) 100 Unit/1 Ml Insuln.pen, 70 UNIT SC, EA 03/07/18 Insulin Lispro (Humalog) 100 Unit/1 Ml Cartridge, 10 UNIT SQ TID w/ meals 08/04/16 Lovastatin* (Lovastatin*) 20 Mg Tablet, 10 MG PO HS, TAB 02/24/16 Medications Current Medications Sodium Chloride 1,000 ml @ 100 mls/hr Q10H IV Last administered on 01/04/19at 08:16; Admin Dose 100 MLS/HR; Start 01/03/19 at 22:28 IV Flush (NS 3 ml) 3 ml PER PROTOCOL IV ; Start 01/03/19 at 22:30 Acetaminophen (Tylenol Tab) 650 mg Q6H PRN PO .PAIN 1-3 OR TEMP Last administered on 01/04/19at 17:55; Admin Dose 650 MG; Start 01/03/19 at 22:30 Acetaminophen/ Hydrocodone Bitart ([place] (5/325)) 1 tab Q6H PRN PO .PAIN 4-6; Start 01/03/19 at 22:30 Acetaminophen/ Hydrocodone Bitart ([place] (5/325)) 2 tab Q6H PRN PO .PAIN 7-10; Start 01/03/19 at 22:30 Atenolol (Tenormin) 25 mg DAILY PO Last administered on 01/04/19at 08:14; Admin Dose 25 MG; Start 01/04/19 at 09:00 Tamsulosin HCl (Flomax) 0.4 mg QPM PO ; Start 01/04/19 at 21:00 Atorvastatin Calcium (Lipitor) 10 mg DAILY@21 PO ; Start 01/04/19 at 21:00 Diagnostic Test (Pha) (Accu-Chek) 1 ea 02 XX Last administered on 01/04/19at 01:59; Admin Dose 1 EA; Start 01/04/19 at 02:00 Insulin Glargine (Lantus) 18 units DAILY@2000 SC Last administered on 01/03/19at 23:49; Admin Dose 18 UNITS; Start 01/03/19 at 23:00 Insulin Aspart (Novolog Insulin Pen) 5 unit WITH MEALS SC Last administered on 01/04/19at 17:50; Admin Dose 5 UNIT; Start 01/04/19 at 07:55 Insulin Aspart (Novolog Insulin Pen) NOVOLOG *MODERATE* ALGORITHM WITH MEALS BEDTIME SC Last administered on 01/04/19at 17:50; Admin Dose 2 UNIT; Start 01/04/19 at 07:55 Ondansetron HCl (Zofran Inj) 4 mg Q6H PRN IV NAUSEA AND/OR VOMITING; Start 01/03/19 at 23:00 Miscellaneous Information 1 ea NOTE XX ; Start 01/03/19 at 23:30 Glucose (Glutose) 15 gm Q15M PRN PO DECREASED GLUCOSE; Start 01/03/19 at 23:30 Glucose (Glutose) 22.5 gm Q15M PRN PO DECREASED GLUCOSE; Start 01/03/19 at 23:30 Dextrose (D50w Syringe) 25 ml Q15M PRN IV DECREASED GLUCOSE; Start 01/03/19 at 23:30 Dextrose (D50w Syringe) 50 ml Q15M PRN IV DECREASED GLUCOSE; Start 01/03/19 at 23:30 Glucagon (Glucagen) 1 mg Q15M PRN IM DECREASED GLUCOSE; Start 01/03/19 at 23:30 Glucose (Glutose) 15 gm Q15M PRN BUCCAL DECREASED GLUCOSE; Start 01/03/19 at 23:30 Vancomycin HCl (Vanco Iv Per Pharmacy) VANCOMYCIN PER PHARMACY PER PROTOCOL XX ; Start 01/04/19 at 09:00 Piperacillin Sod/ Tazobactam Sod 100 ml @ 200 mls/hr Q6 IVPB Last administered on 01/04/19at 17:42; Admin Dose 200 MLS/HR; Start 01/04/19 at 10:00 Vancomycin HCl 1.25 gm/Sodium Chloride 250 ml @ 83.333 mls/ hr ONCE IVPB Last administered on 01/04/19at 12:40; Admin Dose 83.333 MLS/HR; Start 01/04/19 at 11:00; Stop 01/04/19 at 20:00 Vancomycin/Sodium Chloride 250 ml @ 125 mls/hr Q12H IVPB ; Start 01/04/19 at 23:00 Allergies: Coded Allergies: vitamin E (d-alpha tocopherol) (Verified Allergy, Unknown, 07/27/17) Past Surgical History Past Surgical Hx: other (2 C-sections and 1 surgery for ectopic ) Family History Significant Family History: no pertinent family hx Social History Alcohol Use: none Smoking Status: Never smoker Drug Use: none Other Social History She is a 3 para 2, 2 C-sections and one surgery for ectopic . Exam/Review of Systems Exam Vitals Vital Signs Date Temp Pulse Resp B/P (MAP) Pulse Ox O2 O2 Flow FiO2 Time Delivery Rate 01/04/19 100.2 17:55 01/04/19 85 16:27 01/04/19 20 156/71 96 Room Air 15:52 (99) Intake and Output 01/03/19 01/03/19 01/04/19 1515:00 23:00 07:00 IntakeIntake Total 1120 ml OutputOutput Total 700 ml BalanceBalance 420 ml Constitutional: alert, other (Feels warm and has headache) Psych: no complaints Head: normocephalic Eyes: nl conjunctiva ENMT: nl external ears & nose Neck: non-tender Respiratory: No wheezing Cardiovascular: regular rate and rhythm; No jugular venous distention (JVD) Gastrointestinal: soft, surgical scars, other (Abdominal wall skin discoloration from insulin injections) Genitourinary - Female: CVA tenderness ( left flank), other ( pelvic exam: No discharge and no pain) Musculoskeletal: nl extremities to inspection Extremities: No calf tenderness Neurological: nl mental status (No) Skin: nl turgor Results Result Diagram: 01/04/19 0422 01/04/19 0422 Results 24hrs Laboratory Tests Test 01/03/19 21:52 01/03/19 22:24 01/03/19 23:15 01/03/19 23:43 Bedside Glucose 224 H 221 H Urine Color STRAW Urine Clarity CLEAR Urine pH 6.0 Urine Specific 1.010 [place] Urine Ketones 1+ H Urine Nitrite NEGATIVE Urine Bilirubin NEGATIVE Urine Urobilinogen NEGATIVE Urine Leukocyte 1+ H Esterase Urine Microscopic 9 H RBC Urine Microscopic 29 H WBC Urine Bacteria FEW A Urine Hemoglobin 2+ H Urine Glucose 2+ H Urine Total Protein 1+ H Lactic Acid Level 1.7 Test 01/04/19 01:58 01/04/19 04:22 01/04/19 04:43 01/04/19 07:51 Bedside Glucose 216 190 White Blood Count 10.4 # Red Blood Count 3.61 #L Hemoglobin 10.4 #L Hematocrit 32.6 #L Mean Corpuscular 90.3 Volume Mean Corpuscular 28.8 L Hemoglobin Mean Corpuscular 31.9 L Hemoglobin Concent Red Cell 13.4 Distribution Width Platelet Count 171 # Mean Platelet Volume 10.5 H Immature 0.400 Granulocytes % Neutrophils % Segmented 71 Neutrophils % (Manual) Band Neutrophils % 24 H (Manual) Lymphocytes % Lymphocytes % 3 L (Manual) Monocytes % Monocytes % (Manual) 1 Eosinophils % Basophils % Myelocytes % 1 H (Manual) Nucleated Red Blood 1 H Cells % Immature 0.040 H Granulocytes # Neutrophils # Neutrophils # 7.6 H (Manual) Band Neutrophils # 2.4 H Lymphocytes (Manual) 0.3 L Lymphocytes # Monocytes # Monocytes # (Manual) 0.1 L Eosinophils # Basophils # Myelocytes # 0.1 H Nucleated Red Blood Cells # Platelet Estimate NORMAL Anisocytosis 1+ Sodium Level 140 Potassium Level 3.8 Chloride Level 110 Carbon Dioxide Level 22 Anion Gap 8 Blood Urea Nitrogen 15 Creatinine 0.92 Est Glomerular > 60 Filtrat Rate mL/min Glucose Level 200 Lactic Acid Level 1.4 Calcium Level 7.7 L Magnesium Level 1.8 Total Bilirubin 0.2 Direct Bilirubin 0.00 Indirect Bilirubin 0.2 Aspartate Amino 24 Transf (AST/SGOT) Alanine 20 Aminotransferase (AL T/SGPT) Alkaline Phosphatase 52 Total Protein 4.8 #L Albumin 2.5 #L Globulin 2.30 Albumin/Globulin 1.08 Ratio Triglycerides Level 139 Cholesterol Level 102 LDL Cholesterol, 30 Calculated HDL Cholesterol 44 Cholesterol/HDL 2.3 Ratio Hemoglobin A1c 6.4 H Test 01/04/19 12:03 01/04/19 17:40 Bedside Glucose [address] scan of the abdomen and pelvis done on 01/02/2019 showed: 1. Obstructive 3 mm stone in the left ureterovesical junction resulting in mild left-sided hydroureteronephrosis with mild to moderate perinephric fat stranding. 2. Additional 3 mm stone is seen in the upper pole of left kidney. 3. Coronary artery calcifications. 4. Multiple colonic diverticulosis. 5. Mild to moderate degenerative changes of the right hip. Medications Medication Current Medications Sodium Chloride 1,000 ml @ 100 mls/hr Q10H IV Last administered on 01/04/19at 08:16; Admin Dose 100 MLS/HR; Start 01/03/19 at 22:28 IV Flush (NS 3 ml) 3 ml PER PROTOCOL IV ; Start 01/03/19 at 22:30 Acetaminophen (Tylenol Tab) 650 mg Q6H PRN PO .PAIN 1-3 OR TEMP Last administered on 01/04/19at 17:55; Admin Dose 650 MG; Start 01/03/19 at 22:30 Acetaminophen/ Hydrocodone Bitart ([place] (5/325)) 1 tab Q6H PRN PO .PAIN 4-6; Start 01/03/19 at 22:30 Acetaminophen/ Hydrocodone Bitart ([place] (5/325)) 2 tab Q6H PRN PO .PAIN 7-10; Start 01/03/19 at 22:30 Atenolol (Tenormin) 25 mg DAILY PO Last administered on 01/04/19at 08:14; Admin Dose 25 MG; Start 01/04/19 at 09:00 Tamsulosin HCl (Flomax) 0.4 mg QPM PO ; Start 01/04/19 at 21:00 Atorvastatin Calcium (Lipitor) 10 mg DAILY@21 PO ; Start 01/04/19 at 21:00 Diagnostic Test (Pha) (Accu-Chek) 1 ea 02 XX Last administered on 01/04/19at 01:59; Admin Dose 1 EA; Start 01/04/19 at 02:00 Insulin Glargine (Lantus) 18 units DAILY@2000 SC Last administered on 01/03/19at 23:49; Admin Dose 18 UNITS; Start 01/03/19 at 23:00 Insulin Aspart (Novolog Insulin Pen) 5 unit WITH MEALS SC Last administered on 01/04/19at 17:50; Admin Dose 5 UNIT; Start 01/04/19 at 07:55 Insulin Aspart (Novolog Insulin Pen) NOVOLOG *MODERATE* ALGORITHM WITH MEALS BEDTIME SC Last administered on 01/04/19at 17:50; Admin Dose 2 UNIT; Start 01/04/19 at 07:55 Ondansetron HCl (Zofran Inj) 4 mg Q6H PRN IV NAUSEA AND/OR VOMITING; Start 01/03/19 at 23:00 Miscellaneous Information 1 ea NOTE XX ; Start 01/03/19 at 23:30 Glucose (Glutose) 15 gm Q15M PRN PO DECREASED GLUCOSE; Start 01/03/19 at 23:30 Glucose (Glutose) 22.5 gm Q15M PRN PO DECREASED GLUCOSE; Start 01/03/19 at 23:30 Dextrose (D50w Syringe) 25 ml Q15M PRN IV DECREASED GLUCOSE; Start 01/03/19 at 23:30 Dextrose (D50w Syringe) 50 ml Q15M PRN IV DECREASED GLUCOSE; Start 01/03/19 at 23:30 Glucagon (Glucagen) 1 mg Q15M PRN IM DECREASED GLUCOSE; Start 01/03/19 at 23:30 Glucose (Glutose) 15 gm Q15M PRN BUCCAL DECREASED GLUCOSE; Start 01/03/19 at 23:30 Vancomycin HCl (Vanco Iv Per Pharmacy) VANCOMYCIN PER PHARMACY PER PROTOCOL XX ; Start 01/04/19 at 09:00 Piperacillin Sod/ Tazobactam Sod 100 ml @ 200 mls/hr Q6 IVPB Last administered on 01/04/19at 17:42; Admin Dose 200 MLS/HR; Start 01/04/19 at 10:00 Vancomycin HCl 1.25 gm/Sodium Chloride 250 ml @ 83.333 mls/ hr ONCE IVPB Last administered on 01/04/19at 12:40; Admin Dose 83.333 MLS/HR; Start 01/04/19 at 11:00; Stop 01/04/19 at 20:00 Vancomycin/Sodium Chloride 250 ml @ 125 mls/hr Q12H IVPB ; Start 01/04/19 at 23:00 ENRIQUETA KENT MD Jan 04, 2019 18:41
[2019-01-04] MEDS: ATORVASTATIN 10 MG TAB PO SCH (20:41)
[2019-01-04] MEDS: TAMSULOSIN (SR) 0.4 MG CAP PO SCH (20:41)
[2019-01-04] MEDS: INSULIN GLARGINE [LANTus] (100 UNITS/ML) SYG SC SCH (21:07)
[2019-01-04] MEDS: VANCOMYCIN 750 MG (PMX) 250 ML IVPB SCH (22:54)
[2019-01-05] VITALS (13 sets, daily range): BP systolic 147–186; BP diastolic 70–88; PULSE 47–90; RESP 18–23
[2019-01-05] MEDS: ACCU-CHEK XX SCH (02:00)
[2019-01-05] MEDS: SOD CHLORIDE 0.9% 1,000 ML IV SCH ×2 (02:52→13:14)
[2019-01-05] MEDS: PIPER-TAZO 3.375 GM IV (PMX) 100 ML IVPB SCH ×4 (05:39→23:41)
[2019-01-05] MEDS: INSULIN ASPART [NOVOLOG] 3 ML PEN SC SCH ×7 (08:07→20:39)
--- NOTE | 2019-01-05 08:41 | CONS ---
Consult Date/Type/Reason Admit Date/Time Jan 03, 2019 at 21:01 Initial Consult Date 01/04/19 Type of Consultation: Urology Reason for Consultation Left ureterovesical junction stone 3 mm in size Requesting Provider: ALINE RICHARDS Date/Time of Note DATE: 01/05/19 TIME: 08:37 Subjective Patient did have fever and chills last night. Her temperature was 100.8 She has no flank pain and no dysuria. Objective Vitals Vital Signs Date Temp Pulse Resp B/P (MAP) Pulse Ox O2 O2 Flow FiO2 Time Delivery Rate 01/05/19 97.9 72 22 156/74 96 Room Air 07:44 (101) Intake and Output 01/04/19 01/04/19 01/05/19 1515:00 23:00 07:00 IntakeIntake Total 1730 ml 1900 ml 600 ml OutputOutput Total 2000 ml BalanceBalance 1730 ml -100 ml 600 ml Exam The abdomen is soft and there is no flank tenderness Results/Medications Result Diagram: 01/04/19 0422 01/04/19 0422 Results 24 hrs Laboratory Tests Test 01/04/19 12:03 01/04/19 17:40 01/04/19 20:49 01/05/19 07:45 Bedside Glucose 129 167 124 141 Test 01/05/19 07:47 White Blood Count Pending Red Blood Count Pending Hemoglobin Pending Hematocrit Pending Mean Corpuscular Pending Volume Mean Corpuscular Pending Hemoglobin Mean Corpuscular Pending Hemoglobin Concent Red Cell Pending Distribution Width Platelet Count Pending Mean Platelet Volume Pending Home Meds Active Scripts Tamsulosin Hcl* (Flomax*) 0.4 Mg Cap.er.24h, 0.4 MG PO QPM, #30 CAP Prov:KALI BUENROSTRO MD 01/02/19 Naloxone HCl nasal spray (Narcan 4 mg/0.1 mL nasal) 4 Mg [place], 4 MG NS .Q2-3MIN for OPIOID OVERDOSE, #2 SPRAY 0 Refills [place] 0.1 mL into one nostril. Repeat with second device into other nostril after 2-3 minutes if no or minimal response Prov:KALI BUENROSTRO MD 01/02/19 Hydrocodone/Acetaminophen ([place] 10-325 Tablet) 1 Each Tablet, 1 TAB PO Q6H PRN for PAIN, #7 TAB Prov:KALI BUENROSTRO MD 01/02/19 Ibuprofen* (Motrin*) 600 Mg Tab, 600 MG PO Q6H PRN for PAIN AND OR ELEVATED TEMP, #30 TAB Prov:KALI BUENROSTRO MD 01/02/19 Reported Medications Atenolol* (Atenolol*) 25 Mg Tablet, 25 MG PO DAILY, #30 TAB 03/07/18 Insulin Glargine,Hum.rec.anlog (Basaglar Kwikpen U-100) 100 Unit/1 Ml Insuln.pen, 70 UNIT SC, EA 03/07/18 Insulin Lispro (Humalog) 100 Unit/1 Ml Cartridge, 10 UNIT SQ TID w/ meals 08/04/16 Lovastatin* (Lovastatin*) 20 Mg Tablet, 10 MG PO HS, TAB 02/24/16 Medications Current Medications Sodium Chloride 1,000 ml @ 100 mls/hr Q10H IV Last administered on 01/05/19at 02:52; Admin Dose 100 MLS/HR; Start 01/03/19 at 22:28 IV Flush (NS 3 ml) 3 ml PER PROTOCOL IV ; Start 01/03/19 at 22:30 Acetaminophen (Tylenol Tab) 650 mg Q6H PRN PO .PAIN 1-3 OR TEMP Last administered on 01/04/19at 17:55; Admin Dose 650 MG; Start 01/03/19 at 22:30 Acetaminophen/ Hydrocodone Bitart ([place] (5/325)) 1 tab Q6H PRN PO .PAIN 4-6; Start 01/03/19 at 22:30 Acetaminophen/ Hydrocodone Bitart ([place] (5/325)) 2 tab Q6H PRN PO .PAIN 7-10; Start 01/03/19 at 22:30 Atenolol (Tenormin) 25 mg DAILY PO Last administered on 01/04/19at 08:14; Admin Dose 25 MG; Start 01/04/19 at 09:00 Tamsulosin HCl (Flomax) 0.4 mg QPM PO Last administered on 01/04/19 20:41; Admin Dose 0.4 MG; Start 01/04/19 at 21:00 Atorvastatin Calcium (Lipitor) 10 mg DAILY@21 PO Last administered on 01/04/19 20:41; Admin Dose 10 MG; Start 01/04/19 at 21:00 Diagnostic Test (Pha) (Accu-Chek) 1 ea 02 XX Last administered on 01/04/19at 01:59; Admin Dose 1 EA; Start 01/04/19 at 02:00 Insulin Glargine (Lantus) 18 units DAILY@2000 SC Last administered on 01/04/19at 21:07; Admin Dose 18 UNITS; Start 01/03/19 at 23:00 Insulin Aspart (Novolog Insulin Pen) 5 unit WITH MEALS SC Last administered on 01/05/19at 08:07; Admin Dose 5 UNIT; Start 01/04/19 at 07:55 Insulin Aspart (Novolog Insulin Pen) NOVOLOG *MODERATE* ALGORITHM WITH MEALS BEDTIME SC Last administered on 01/05/19at 08:07; Admin Dose 2 UNIT; Start 01/04/19 at 07:55 Ondansetron HCl (Zofran Inj) 4 mg Q6H PRN IV NAUSEA AND/OR VOMITING; Start 01/03/19 at 23:00 Miscellaneous Information 1 ea NOTE XX ; Start 01/03/19 at 23:30 Glucose (Glutose) 15 gm Q15M PRN PO DECREASED GLUCOSE; Start 01/03/19 at 23:30 Glucose (Glutose) 22.5 gm Q15M PRN PO DECREASED GLUCOSE; Start 01/03/19 at 23:30 Dextrose (D50w Syringe) 25 ml Q15M PRN IV DECREASED GLUCOSE; Start 01/03/19 at 23:30 Dextrose (D50w Syringe) 50 ml Q15M PRN IV DECREASED GLUCOSE; Start 01/03/19 at 23:30 Glucagon (Glucagen) 1 mg Q15M PRN IM DECREASED GLUCOSE; Start 01/03/19 at 23:30 Glucose (Glutose) 15 gm Q15M PRN BUCCAL DECREASED GLUCOSE; Start 01/03/19 at 23:30 Vancomycin HCl (Vanco Iv Per Pharmacy) VANCOMYCIN PER PHARMACY PER PROTOCOL XX ; Start 01/04/19 at 09:00 Piperacillin Sod/ Tazobactam Sod 100 ml @ 200 mls/hr Q6 IVPB Last administered on 01/05/19at 05:39; Admin Dose 200 MLS/HR; Start 01/04/19 at 10:00 Vancomycin/Sodium Chloride 250 ml @ 125 mls/hr Q12H IVPB Last administered on 01/04/19at 22:54; Admin Dose 125 MLS/HR; Start 01/04/19 at 23:00 Assessment/Plan Hospital Course (Demo Recall) 58-year-old female presented to the emergency room on 01/02/2019 with left flank pain nausea and vomiting. She underwent a CT scan of the abdomen and pelvis and that showed a 3 mm stone at the left ureterovesical junction.The patient was sent home on tamsulosin and antibiotic. The patient was having fever and [facility] because [facility] her insurance. The patient states she had no pain since her visit to the emergency room however she does have a headache and she has been coughing and having fever. Since her admission the patient did not pass the stone. She has been having some cough and fever. Her temperature last night was 100.8 Pelvic ultrasound done last night did not show any stone at the ureterovesical junction. That does not rule out the stone to be in the distal ureter. Clinically the patient is not having the pain from the stone. She may well have passed it and if she did not she will be able to pass it as it is a small one ENRIQUETA KENT MD Jan 05, 2019 08:41
[2019-01-05] MEDS: ATENOLOL 25 MG TAB PO SCH (08:44)
[2019-01-05] MEDS: ACETAMINOPHEN 325 MG TAB PO PRN ×3 (08:44→17:05)
[2019-01-05] MEDS: VANCOMYCIN 750 MG (PMX) 250 ML IVPB SCH (10:30)
[2019-01-05] MEDS ORDERED: POTASSIUM CHLORIDE (SR) 20 MEQ TAB PO STA (11:09)
--- NOTE | 2019-01-05 11:13 | PN ---
Date/Time of Note Date/Time of Note DATE: 01/05/19 TIME: 11:10 Assessment/Plan VTE Prophylaxis Risk score (from Nsg)>0 risk: 1 SCD applied (from Nsg): Yes Pharmacological prophylaxis: other Lines/Catheters IV Catheter Type (from Nrsg): Peripheral IV Assessment/Plan Hospital Course S: Patient still with fevers in the last 24 hours, seen by urology team yesterday and today. Unclear patient has passed stone yet. Tolerating diet. O: VS- see below PE: Constitutional: lying in bed, no acute distress Head: normocephalic, atraumatic Eyes: EOMI, PERRL Respiratory: clear to auscultation, normal air movement Cardiovascular: regular rhythm Gastrointestinal: soft, other (slightly less left flank pain) Extremities: normal pulses CT scan abdomen pelvis January 02, 2019: IMPRESSION: 1. Obstructive 3 mm stone in the left ureterovesical junction resulting in mild left-sided hydroureteronephrosis with mild to moderate perinephric fat stranding. 2. Additional 3 mm stone is seen in the upper pole of left kidney. 3. Coronary artery calcifications. 4. Multiple colonic diverticulosis. 5. Mild to moderate degenerative changes of the right hip. Assessment/Plan: 58-year-old female who presents with: 1. Left obstructive ureteral vesicle stone, with hydroureteronephrosis. Urology team consulted -appreciate the recommendations -Continue IV fluid and IV antibiotic -Continue to strain urine -Continue Flomax -Follow-up recommendations from urology consult -Will replete low electrolytes today as well. 2. Sepsis: Secondary to left-sided pyelonephritis. Patient with fevers, on antibiotics, white blood cell count is normal -See #1 -Follow-up urine culture result 3. Insulin-dependent diabetes: Sugars stable, A1c equals 6.4 -Monitor, adjust insulin as needed 4. Hypertension: Stable -adjust antihypertensive as needed Dispo: Likely home in 24 hours if remains afebrile and overall symptoms improved. Result Diagram: 01/05/19 0747 01/05/19 0747 Results 24hrs Laboratory Tests Test 01/04/19 12:03 01/04/19 17:40 01/04/19 20:49 01/05/19 07:45 Bedside Glucose 129 167 124 141 Test 01/05/19 07:47 White Blood Count 7.6 # Red Blood Count 3.33 L Hemoglobin 9.8 L Hematocrit 29.9 L Mean Corpuscular 89.8 Volume Mean Corpuscular 29.4 Hemoglobin Mean Corpuscular 32.8 Hemoglobin Concent Red Cell 13.1 Distribution Width Platelet Count 153 Mean Platelet Volume 10.9 H Immature 0.400 Granulocytes % Neutrophils % 86.4 H Lymphocytes % 7.9 L Monocytes % 4.7 Eosinophils % 0.3 Basophils % 0.3 Nucleated Red Blood 0.0 Cells % Immature 0.030 Granulocytes # Neutrophils # 6.6 Lymphocytes # 0.6 L Monocytes # 0.4 Eosinophils # 0.0 Basophils # 0.0 Nucleated Red Blood 0.0 Cells # Sodium Level 137 Potassium Level 3.3 L Chloride Level 108 Carbon Dioxide Level 20 L Anion Gap 9 Blood Urea Nitrogen 11 Creatinine 0.95 Est Glomerular > 60 Filtrat Rate mL/min Glucose Level 145 # Calcium Level 7.6 L Phosphorus Level 1.5 L Magnesium Level 1.8 Triglycerides Level 209 H Cholesterol Level 104 LDL Cholesterol, 29 Calculated HDL Cholesterol 33 #L Cholesterol/HDL 3.1 Ratio Exam/Review of Systems Exam Vitals Vital Signs Date Temp Pulse Resp B/P (MAP) Pulse Ox O2 O2 Flow FiO2 Time Delivery Rate 01/05/19 90 08:00 01/05/19 97.9 22 156/74 96 Room Air 07:44 (101) Intake and Output 01/04/19 01/04/19 01/05/19 1515:00 23:00 07:00 IntakeIntake Total 1730 ml 1900 ml 600 ml OutputOutput Total 2000 ml BalanceBalance 1730 ml -100 ml 600 ml Results Results 24hrs Laboratory Tests Test 01/04/19 12:03 01/04/19 17:40 01/04/19 20:49 01/05/19 07:45 Bedside Glucose 129 167 124 141 Test 01/05/19 07:47 White Blood Count 7.6 # Red Blood Count 3.33 L Hemoglobin 9.8 L Hematocrit 29.9 L Mean Corpuscular 89.8 Volume Mean Corpuscular 29.4 Hemoglobin Mean Corpuscular 32.8 Hemoglobin Concent Red Cell 13.1 Distribution Width Platelet Count 153 Mean Platelet Volume 10.9 H Immature 0.400 Granulocytes % Neutrophils % 86.4 H Lymphocytes % 7.9 L Monocytes % 4.7 Eosinophils % 0.3 Basophils % 0.3 Nucleated Red Blood 0.0 Cells % Immature 0.030 Granulocytes # Neutrophils # 6.6 Lymphocytes # 0.6 L Monocytes # 0.4 Eosinophils # 0.0 Basophils # 0.0 Nucleated Red Blood 0.0 Cells # Sodium Level 137 Potassium Level 3.3 L Chloride Level 108 Carbon Dioxide Level 20 L Anion Gap 9 Blood Urea Nitrogen 11 Creatinine 0.95 Est Glomerular > 60 Filtrat Rate mL/min Glucose Level 145 # Calcium Level 7.6 L Phosphorus Level 1.5 L Magnesium Level 1.8 Triglycerides Level 209 H Cholesterol Level 104 LDL Cholesterol, 29 Calculated HDL Cholesterol 33 #L Cholesterol/HDL 3.1 Ratio Medications Medication Current Medications Sodium Chloride 1,000 ml @ 100 mls/hr Q10H IV Last administered on 01/05/19 02:52; Admin Dose 100 MLS/HR; Start 01/03/19 at 22:28 IV Flush (NS 3 ml) 3 ml PER PROTOCOL IV ; Start 01/03/19 at 22:30 Acetaminophen (Tylenol Tab) 650 mg Q6H PRN PO .PAIN 1-3 OR TEMP Last administered on 01/05/19 08:44; Admin Dose 650 MG; Start 01/03/19 at 22:30 Acetaminophen/ Hydrocodone Bitart ([place] (5/325)) 1 tab Q6H PRN PO .PAIN 4-6; Start 01/03/19 at 22:30 Acetaminophen/ Hydrocodone Bitart ([place] (5/325)) 2 tab Q6H PRN PO .PAIN 7-10; Start 01/03/19 at 22:30 Atenolol (Tenormin) 25 mg DAILY PO Last administered on 01/05/19 08:44; Admin Dose 25 MG; Start 01/04/19 at 09:00 Tamsulosin HCl (Flomax) 0.4 mg QPM PO Last administered on 01/04/19 20:41; Admin Dose 0.4 MG; Start 01/04/19 at 21:00 Atorvastatin Calcium (Lipitor) 10 mg DAILY@21 PO Last administered on 01/04/19 20:41; Admin Dose 10 MG; Start 01/04/19 at 21:00 Diagnostic Test (Pha) (Accu-Chek) 1 ea 02 XX Last administered on 01/04/19at 01:59; Admin Dose 1 EA; Start 01/04/19 at 02:00 Insulin Glargine (Lantus) 18 units DAILY@2000 SC Last administered on 01/04/19at 21:07; Admin Dose 18 UNITS; Start 01/03/19 at 23:00 Insulin Aspart (Novolog Insulin Pen) 5 unit WITH MEALS SC Last administered on 01/05/19at 08:07; Admin Dose 5 UNIT; Start 01/04/19 at 07:55 Insulin Aspart (Novolog Insulin Pen) NOVOLOG *MODERATE* ALGORITHM WITH MEALS BEDTIME SC Last administered on 01/05/19at 08:07; Admin Dose 2 UNIT; Start 01/04/19 at 07:55 Ondansetron HCl (Zofran Inj) 4 mg Q6H PRN IV NAUSEA AND/OR VOMITING; Start 01/03/19 at 23:00 Miscellaneous Information 1 ea NOTE XX ; Start 01/03/19 at 23:30 Glucose (Glutose) 15 gm Q15M PRN PO DECREASED GLUCOSE; Start 01/03/19 at 23:30 Glucose (Glutose) 22.5 gm Q15M PRN PO DECREASED GLUCOSE; Start 01/03/19 at 23:30 Dextrose (D50w Syringe) 25 ml Q15M PRN IV DECREASED GLUCOSE; Start 01/03/19 at 23:30 Dextrose (D50w Syringe) 50 ml Q15M PRN IV DECREASED GLUCOSE; Start 01/03/19 at 23:30 Glucagon (Glucagen) 1 mg Q15M PRN IM DECREASED GLUCOSE; Start 01/03/19 at 23:30 Glucose (Glutose) 15 gm Q15M PRN BUCCAL DECREASED GLUCOSE; Start 01/03/19 at 23:30 Vancomycin HCl (Vanco Iv Per Pharmacy) VANCOMYCIN PER PHARMACY PER PROTOCOL XX ; Start 01/04/19 at 09:00 Piperacillin Sod/ Tazobactam Sod 100 ml @ 200 mls/hr Q6 IVPB Last administered on 01/05/19at 05:39; Admin Dose 200 MLS/HR; Start 01/04/19 at 10:00 Vancomycin/Sodium Chloride 250 ml @ 125 mls/hr Q12H IVPB Last administered on 01/05/19at 10:30; Admin Dose 125 MLS/HR; Start 01/04/19 at 23:00 Potassium Phosphate 60 meq/ Sodium Chloride 263.6364 ml @ 65.909 m... ONCE ONCE IVPB ; Start 01/05/19 at 11:30; Stop 01/05/19 at 15:29; Status UNV ALINE RICHARDS Jan 05, 2019 11:13
[2019-01-05] MEDS ORDERED: POTASSIUM PHOSPHATE 60 MEQ in SOD CHLORIDE 0.9% 250 ML IVPB ONE (13:00)
[2019-01-05] MEDS: INSULIN GLARGINE [LANTus] (100 UNITS/ML) SYG SC SCH (19:59)
[2019-01-05] MEDS: ATORVASTATIN 10 MG TAB PO SCH (20:39)
[2019-01-05] MEDS: TAMSULOSIN (SR) 0.4 MG CAP PO SCH (20:39)
[2019-01-06] VITALS (13 sets, daily range): BP systolic 119–170; BP diastolic 65–77; PULSE 64–84; RESP 18–20
[2019-01-06] MEDS: ACCU-CHEK XX SCH (01:42)
[2019-01-06] MEDS: PIPER-TAZO 3.375 GM IV (PMX) 100 ML IVPB SCH ×4 (06:19→23:46)
[2019-01-06] MEDS: SOD CHLORIDE 0.9% 1,000 ML IV SCH ×3 (06:20→20:40)
[2019-01-06] MEDS: INSULIN ASPART [NOVOLOG] 3 ML PEN SC SCH ×7 (07:46→21:00)
[2019-01-06] MEDS: ATENOLOL 25 MG TAB PO SCH (08:57)
--- NOTE | 2019-01-06 11:40 | PDOCDIS ---
Discharge Instructions CONDITION Qnoan6Go Patient Condition: Jnuon8m Stable HOME CARE INSTRUCTIONS: Jbicw2Ox Diet Instructions: Lotiz6f Low Fat /Cholesterol ACTIVITY: Slzyd2Ta Activity Restrictions: [id number] Slowly Increase Activity Rest between Activity Avoid heavy lifting FOLLOW UP/APPOINTMENTS Follow-up Plan Please take your medication as prescribed, see your doctor in the clinic in the next 1 week. ALINE RICHARDS Jan 06, 2019 11:40
[2019-01-06] MEDS ORDERED: LEVO750T8 PO (11:42)
[2019-01-06] MEDS ORDERED: BENZ1LOZ4 MT (11:42)
[2019-01-06] MEDS ORDERED: ONDA4TAB8 PO (11:42)
--- NOTE | 2019-01-06 11:48 | DS ---
Date/Time of Note Date/Time of Note DATE: 01/06/19 TIME: 11:43 Discharge Summary Admission/Discharge Info Admit Date/Time Jan 03, 2019 at 21:01 Discharge Date/Time Discharge Diagnosis 1. Left obstructive ureteral vesicle stone, with hydroureteronephrosis -impr oving. Urology team consulted -appreciate the recommendations 2. Sepsis: Secondary to left-sided pyelonephritis -resolved. 3. Insulin-dependent diabetes: Sugars stable, A1c equals 6.4 4. Hypertension: Stable Procedures CT scan abdomen pelvis January 02, 2019: IMPRESSION: 1. Obstructive 3 mm stone in the left ureterovesical junction resulting in mild left-sided hydroureteronephrosis with mild to moderate perinephric fat stranding. 2. Additional 3 mm stone is seen in the upper pole of left kidney. 3. Coronary artery calcifications. 4. Multiple colonic diverticulosis. 5. Mild to moderate degenerative changes of the right hip. Hx of Present Illness 58-year-old female with a history of hypertension, insulin-dependent diabetes who initially presented on outside hospital complaining of left flank pain. Patient was found to be febrile and had a UTI. She was transferred to [facility] for insurance reason. She was actually here a day prior with similar symptoms. At that time CT abdomen/pelvis shows obstructive 3 mm stone in the left urethrovesical junction with mild hydroureteronephrosis and moderate perinephric fat stranding. Patient was discharged from the ER that time. Patient has been febrile and tachycardic here. Hospital Course Patient was admitted and seen by urology team antibiotics. Patient's urine was strained as well. She also had some mild cough symptoms but her white blood cell count was stable, no fevers. Her culture results were negative. She was on broad-spectrum antibiotics. Over the course of her hospital stay her overall symptoms slowly improved. She was able to ambulate, tolerate a p.o. diet. If she remains afebrile for the rest of the day today, she will be discharged home later this evening if cleared by urology team, improved condition. See below for full list of discharge medications which will include broad-spectrum antibiotics for another 7 days at home. Home Meds Active Scripts Ondansetron Hcl* (Zofran*) 4 Mg Tablet, 4 MG PO Q6H PRN for NAUSEA AND OR VOMITING, #14 TAB Prov:ALINE RICHARDS. 01/06/19 Benzocaine/Menthol (SORE THROAT LOZENGE) 1 Each Lozenge, 1 LOZENGE MT Q1H PRN for COUGH, #20 LOZENGE Prov:MARTINE RICHARDSP S. 01/06/19 Levofloxacin* (Levofloxacin*) 750 Mg Tablet, 750 MG PO DAILY, #7 TAB Prov:SUSIEALINE S. 01/06/19 Tamsulosin Hcl* (Flomax*) 0.4 Mg Cap.er.24h, 0.4 MG PO QPM, #30 CAP Prov:KALI BUENROSTRO MD 01/02/19 Naloxone HCl nasal spray (Narcan 4 mg/0.1 mL nasal) 4 Mg [place], 4 MG NS .Q2-3MIN for OPIOID OVERDOSE, #2 SPRAY 0 Refills [place] 0.1 mL into one nostril. Repeat with second device into other nostril after 2-3 minutes if no or minimal response Prov:KALI BUENROSTRO MD 01/02/19 Hydrocodone/Acetaminophen ([place] 10-325 Tablet) 1 Each Tablet, 1 TAB PO Q6H PRN for PAIN, #7 TAB Prov:KALI BUENROSTRO MD 01/02/19 Ibuprofen* (Motrin*) 600 Mg Tab, 600 MG PO Q6H PRN for PAIN AND OR ELEVATED TEMP, #30 TAB Prov:KALI BUENROSTRO MD 01/02/19 Reported Medications Atenolol* (Atenolol*) 25 Mg Tablet, 25 MG PO DAILY, #30 TAB 03/07/18 Insulin Glargine,Hum.rec.anlog (Basaglar Kwikpen U-100) 100 Unit/1 Ml Insuln.pen, 70 UNIT SC, EA 03/07/18 Insulin Lispro (Humalog) 100 Unit/1 Ml Cartridge, 10 UNIT SQ TID w/ meals 08/04/16 Lovastatin* (Lovastatin*) 20 Mg Tablet, 10 MG PO HS, TAB 02/24/16 Follow-up Plan Please take your medication as prescribed, see your doctor in the clinic in the next 1 week. Primary Care Provider Not On Staff Doctor Pending Labs Laboratory Tests Test 01/05/19 17:49 01/05/19 20:38 01/06/19 06:16 01/06/19 07:46 Bedside 131 105 127 Glucose mg/dL (70-220) mg/dL (70-220) mg/dL (70-220) White Blood 7.7 Count 10^3/ul (4.8-1 0.8) Red Blood 3.84 Count 10^6/ul (4.20- 5.40) Hemoglobin 11.0 g/dl (12.0-16. 0) Hematocrit 34.4 % (37.0-47.0) Mean 89.6 Corpuscular fl (82.0-101.0 Volume ) Mean 28.6 Corpuscular pg (29.0-33.0) Hemoglobin Mean 32.0 Corpuscular g/dl (32.0-37. Hemoglobin Conc 0) ent Red Cell 13.1 Distribution % (11.5-14.5) Width Platelet Count 200 10^3/UL (140-4 15) Mean Platelet 10.4 Volume fl (7.4-10.4) Immature 0.400 Granulocytes % % (0.001-0.429 ) Neutrophils % 77.2 % (39.0-77.0) Lymphocytes % 14.5 % (15.0-51.0) Monocytes % 6.3 % (0.0-11.0) Eosinophils % 1.2 % (0.0-7.0) Basophils % 0.4 % (0.0-2.0) Nucleated Red 0.0 Blood Cells % /100WBC (0.0-0 .0) Immature 0.030 Granulocytes # 10^3/ul (0.0-0 .031) Neutrophils # 5.9 10^3/ul (1.6-7 .5) Lymphocytes # 1.1 10^3/ul (0.8-2 .9) Monocytes # 0.5 10^3/ul (0.3-0 .9) Eosinophils # 0.1 10^3/ul (0.0-0 .5) Basophils # 0.0 10^3/ul (0.0-0 .1) Nucleated Red 0.0 Blood Cells # 10^3/ul (0.0-0 .0) Sodium Level 140 mmol/L (135-14 4) Potassium 3.6 Level mmol/L (3.5-5. 1) Chloride Level 104 mmol/L (97-110 ) Carbon Dioxide 23 Level mmol/L (21-31) Anion Gap 13 (5-13) Blood Urea 11 Nitrogen mg/dl (7-20) Creatinine 0.95 mg/dl (0.44-1. 00) Est Glomerular > 60 Filtrat mL/min (>60) Rate mL/min Glucose Level 127 mg/dl (70-220) Calcium Level 8.1 mg/dl (8.4-10. 2) Phosphorus 2.6 Level mg/dl (2.5-4.9 ) Magnesium 1.8 Level mg/dl (1.7-2.5 ) Test 01/06/19 11:10 Bedside 151 Glucose mg/dL (70-220) ALINE RICHARDS Jan 06, 2019 11:48
[2019-01-06] MEDS ORDERED: hydrALAzine 20 MG INJ IV PRN (12:00)
[2019-01-06] MEDS: CEPASTAT LOZENGE MT PRN ×3 (13:35→16:40)
[2019-01-06] MEDS ORDERED: ALBUTEROL/IPRATROPIUM (NEB) 3 ML AMP HHN STA (18:53)
[2019-01-06] MEDS ORDERED: ALBUTEROL/IPRATROPIUM (NEB) 3 ML AMP HHN PRN (19:00)
--- NOTE | 2019-01-06 19:35 | CONS ---
Consult Date/Type/Reason Admit Date/Time Jan 03, 2019 at 21:01 Initial Consult Date 01/04/19 Type of Consultation: Urology Reason for Consultation Distal left ureteral stone Requesting Provider: ALINE RICHARDS Date/Time of Note DATE: 01/06/19 TIME: 19:31 Subjective Patient denies any pain in the pelvic area. She has no pain that could be related to the ureterovesical junction stone Objective Vitals Vital Signs Date Temp Pulse Resp B/P (MAP) Pulse Ox O2 O2 Flow FiO2 Time Delivery Rate 01/06/19 98.4 18:25 01/06/19 82 16:12 01/06/19 18 133/65 96 15:05 (87) 01/06/19 Room Air 04:16 Intake and Output 01/05/19 01/05/19 01/06/19 1515:00 23:00 07:00 IntakeIntake Total 1225 ml 1450 ml 650 ml BalanceBalance 1225 ml 1450 ml 650 ml Exam Abdomen is soft and there is no abdominal mass palpable or tenderness Results/Medications Result Diagram: 01/06/19 0616 01/06/19 0616 Results 24 hrs Laboratory Tests Test 01/05/19 20:38 01/06/19 06:16 01/06/19 07:46 01/06/19 11:10 Bedside Glucose 105 127 151 White Blood Count 7.7 Red Blood Count 3.84 L Hemoglobin 11.0 L Hematocrit 34.4 L Mean Corpuscular 89.6 Volume Mean Corpuscular 28.6 L Hemoglobin Mean Corpuscular 32.0 Hemoglobin Concent Red Cell 13.1 Distribution Width Platelet Count 200 # Mean Platelet Volume 10.4 Immature 0.400 Granulocytes % Neutrophils % 77.2 H Lymphocytes % 14.5 L Monocytes % 6.3 Eosinophils % 1.2 Basophils % 0.4 Nucleated Red Blood 0.0 Cells % Immature 0.030 Granulocytes # Neutrophils # 5.9 Lymphocytes # 1.1 Monocytes # 0.5 Eosinophils # 0.1 Basophils # 0.0 Nucleated Red Blood 0.0 Cells # Sodium Level 140 Potassium Level 3.6 Chloride Level 104 Carbon Dioxide Level 23 Anion Gap 13 Blood Urea Nitrogen 11 Creatinine 0.95 Est Glomerular > 60 Filtrat Rate mL/min Glucose Level 127 Calcium Level 8.1 L Phosphorus Level 2.6 Magnesium Level 1.8 Test 01/06/19 17:28 Bedside Glucose 142 Home Meds Active Scripts Ondansetron Hcl* (Zofran*) 4 Mg Tablet, 4 MG PO Q6H PRN for NAUSEA AND OR VOMITING, #14 TAB Prov:ALINE RICHARDS S. 01/06/19 Benzocaine/Menthol (SORE THROAT LOZENGE) 1 Each Lozenge, 1 LOZENGE MT Q1H PRN for COUGH, #20 LOZENGE Prov:ALINE RICHARDS S. 01/06/19 Levofloxacin* (Levofloxacin*) 750 Mg Tablet, 750 MG PO DAILY, #7 TAB Prov:MARTINE RICHARDSP S. 01/06/19 Tamsulosin Hcl* (Flomax*) 0.4 Mg Cap.er.24h, 0.4 MG PO QPM, #30 CAP Prov:KALI BUENROSTRO MD 01/02/19 Naloxone HCl nasal spray (Narcan 4 mg/0.1 mL nasal) 4 Mg [place], 4 MG NS .Q2-3MIN for OPIOID OVERDOSE, #2 SPRAY 0 Refills [place] 0.1 mL into one nostril. Repeat with second device into other nostril after 2-3 minutes if no or minimal response Prov:KALI BUENROSTRO MD 01/02/19 Hydrocodone/Acetaminophen ([place] 10-325 Tablet) 1 Each Tablet, 1 TAB PO Q6H PRN for PAIN, #7 TAB Prov:KALI BUENROSTRO MD 01/02/19 Ibuprofen* (Motrin*) 600 Mg Tab, 600 MG PO Q6H PRN for PAIN AND OR ELEVATED TEMP, #30 TAB Prov:KALI BUENROSTRO MD 01/02/19 Reported Medications Atenolol* (Atenolol*) 25 Mg Tablet, 25 MG PO DAILY, #30 TAB 03/07/18 Insulin Glargine,Hum.rec.anlog (Basaglar Kwikpen U-100) 100 Unit/1 Ml Insuln.pen, 70 UNIT SC, EA 03/07/18 Insulin Lispro (Humalog) 100 Unit/1 Ml Cartridge, 10 UNIT SQ TID w/ meals 08/04/16 Lovastatin* (Lovastatin*) 20 Mg Tablet, 10 MG PO HS, TAB 02/24/16 Medications Current Medications Sodium Chloride 1,000 ml @ 100 mls/hr Q10H IV Last administered on 01/06/19 06:20; Admin Dose 100 MLS/HR; Start 01/03/19 at 22:28 IV Flush (NS 3 ml) 3 ml PER PROTOCOL IV ; Start 01/03/19 at 22:30 Acetaminophen (Tylenol Tab) 650 mg Q6H PRN PO .PAIN 1-3 OR TEMP Last administered on 01/05/19 17:05; Admin Dose 650 MG; Start 01/03/19 at 22:30 Acetaminophen/ Hydrocodone Bitart ([place] (5/325)) 1 tab Q6H PRN PO .PAIN 4-6; Start 01/03/19 at 22:30 Acetaminophen/ Hydrocodone Bitart ([place] (5/325)) 2 tab Q6H PRN PO .PAIN 7-10; Start 01/03/19 at 22:30 Atenolol (Tenormin) 25 mg DAILY PO Last administered on 01/06/19 08:57; Admin Dose 25 MG; Start 01/04/19 at 09:00 Tamsulosin HCl (Flomax) 0.4 mg QPM PO Last administered on 01/05/19 20:39; Admin Dose 0.4 MG; Start 01/04/19 at 21:00 Atorvastatin Calcium (Lipitor) 10 mg DAILY@21 PO Last administered on 01/05/19 20:39; Admin Dose 10 MG; Start 01/04/19 at 21:00 Diagnostic Test (Pha) (Accu-Chek) 1 ea 02 XX Last administered on 01/04/19 01:59; Admin Dose 1 EA; Start 01/04/19 at 02:00 Insulin Glargine (Lantus) 18 units DAILY@1999 SC Last administered on 01/05/19 19:59; Admin Dose 18 UNITS; Start 01/03/19 at 23:00 Insulin Aspart (Novolog Insulin Pen) 5 unit WITH MEALS SC Last administered on 01/06/19 17:45; Admin Dose 5 UNIT; Start 01/04/19 at 07:55 Insulin Aspart (Novolog Insulin Pen) NOVOLOG *MODERATE* ALGORITHM WITH MEALS BEDTIME SC Last administered on 01/06/19 17:45; Admin Dose 2 UNIT; Start 01/04/19 at 07:55 Ondansetron HCl (Zofran Inj) 4 mg Q6H PRN IV NAUSEA AND/OR VOMITING Last administered on 01/05/19at 17:05; Admin Dose 4 MG; Start 01/03/19 at 23:00 Miscellaneous Information 1 ea NOTE XX ; Start 01/03/19 at 23:30 Glucose (Glutose) 15 gm Q15M PRN PO DECREASED GLUCOSE; Start 01/03/19 at 23:30 Glucose (Glutose) 22.5 gm Q15M PRN PO DECREASED GLUCOSE; Start 01/03/19 at 23:30 Dextrose (D50w Syringe) 25 ml Q15M PRN IV DECREASED GLUCOSE; Start 01/03/19 at 23:30 Dextrose (D50w Syringe) 50 ml Q15M PRN IV DECREASED GLUCOSE; Start 01/03/19 at 23:30 Glucagon (Glucagen) 1 mg Q15M PRN IM DECREASED GLUCOSE; Start 01/03/19 at 23:30 Glucose (Glutose) 15 gm Q15M PRN BUCCAL DECREASED GLUCOSE; Start 01/03/19 at 23:30 Piperacillin Sod/ Tazobactam Sod 100 ml @ 200 mls/hr Q6 IVPB Last administered on 01/06/19at 17:29; Admin Dose 200 MLS/HR; Start 01/04/19 at 10:00 Phenol (Cepastat Lozenge) 1 lozenge Q1H PRN MT COUGH Last administered on 01/06/19at 16:40; Admin Dose 1 LOZENGE; Start 01/06/19 at 12:00 Hydralazine HCl (Apresoline) 10 mg Q6H PRN IV ELEVATED BLOOD PRESSURE; Start 01/06/19 at 12:00 Albuterol/ Ipratropium (Duoneb) 3 ml Q4H RESP THERAPY PRN HHN SHORTNESS OF BREATH; Start 01/06/19 at 19:00 Assessment/Plan Hospital Course (Demo Recall) 58-year-old female presented to the emergency room on 01/02/2019 with left flank pain nausea and vomiting. She underwent a CT scan of the abdomen and pelvis and that showed a 3 mm stone at the left ureterovesical junction.The patient was sent home on tamsulosin and antibiotic. The patient was having fever and went to the emergency room on 01/03/2019 at [facility] and was transferred here because of her insurance. The patient states she had no pain since her visit to the emergency room however she does have a headache and she has been coughing and having fever. Since her admission the patient did not pass the stone. She has been having some cough and fever. Her temperature 97.7 at 4:30 PM today Pelvic ultrasound done did not show any stone at the ureterovesical junction. That does not rule out the stone to be in the distal ureter. Clinically the patient is not having the pain from the stone. She may well have passed it and if she did not she will be able to pass it as it is a small one from a urological standpoint she may be discharged ENRIQUETA KENT MD Jan 06, 2019 19:35
[2019-01-06] MEDS: TAMSULOSIN (SR) 0.4 MG CAP PO SCH (20:40)
[2019-01-06] MEDS: ATORVASTATIN 10 MG TAB PO SCH (20:40)
[2019-01-06] MEDS: INSULIN GLARGINE [LANTus] (100 UNITS/ML) SYG SC SCH (20:48)
[2019-01-07] VITALS (12 sets, daily range): BP systolic 159–184; BP diastolic 73–89; PULSE 34–73; RESP 16–22
[2019-01-07] MEDS: ACCU-CHEK XX SCH (01:40)
[2019-01-07] MEDS: PIPER-TAZO 3.375 GM IV (PMX) 100 ML IVPB SCH ×2 (05:29→11:12)
[2019-01-07] MEDS: SOD CHLORIDE 0.9% 1,000 ML IV SCH ×2 (06:28→11:13)
[2019-01-07] MEDS: INSULIN ASPART [NOVOLOG] 3 ML PEN SC SCH ×4 (07:51→11:48)
[2019-01-07] MEDS: ATENOLOL 25 MG TAB PO SCH (08:08)
--- NOTE | 2019-01-07 12:59 | CONS ---
Consult Date/Type/Reason Admit Date/Time Jan 03, 2019 at 21:01 Initial Consult Date 01/04/19 Type of Consultation: Urology Reason for Consultation Distal left ureteral stone Requesting Provider: ALINE RICHARDS Date/Time of Note DATE: 01/07/19 TIME: 12:57 Subjective The patient has been complaining of cough. She denies any flank pain. No dysuria and no hematuria Objective Vitals Vital Signs Date Temp Pulse Resp B/P (MAP) Pulse Ox O2 O2 Flow FiO2 Time Delivery Rate 01/07/19 98.0 72 22 159/89 96 Room Air 11:27 (112) 01/06/19 21 20:31 Intake and Output 01/06/19 01/06/19 01/07/19 1515:00 23:00 07:00 IntakeIntake Total 600 ml 1000 ml BalanceBalance 600 ml 1000 ml Exam Abdomen is soft and there is no flank tenderness Results/Medications Result Diagram: 01/07/19 0625 01/07/19 0625 Results 24 hrs Laboratory Tests Test 01/06/19 17:28 01/06/19 20:58 01/07/19 06:25 01/07/19 07:50 Bedside Glucose 142 143 135 White Blood Count 7.0 Red Blood Count 3.92 L Hemoglobin 11.2 L Hematocrit 34.0 L Mean Corpuscular 86.7 Volume Mean Corpuscular 28.6 L Hemoglobin Mean Corpuscular 32.9 Hemoglobin Concent Red Cell 12.9 Distribution Width Platelet Count 236 Mean Platelet Volume 10.2 Immature 0.400 Granulocytes % Neutrophils % 70.3 Lymphocytes % 17.6 Monocytes % 8.5 Eosinophils % 2.6 Basophils % 0.6 Nucleated Red Blood 0.0 Cells % Immature 0.030 Granulocytes # Neutrophils # 4.9 Lymphocytes # 1.2 Monocytes # 0.6 Eosinophils # 0.2 Basophils # 0.0 Nucleated Red Blood 0.0 Cells # Sodium Level 140 Potassium Level 3.4 L Chloride Level 106 Carbon Dioxide Level 23 Anion Gap 11 Blood Urea Nitrogen 9 Creatinine 0.89 Est Glomerular > 60 Filtrat Rate mL/min Glucose Level 132 Calcium Level 8.5 Test 01/07/19 11:37 Bedside Glucose 215 Home Meds Active Scripts Ondansetron Hcl* (Zofran*) 4 Mg Tablet, 4 MG PO Q6H PRN for NAUSEA AND OR VOMITING, #14 TAB Prov:ALINE RICHARDS S. 01/06/19 Benzocaine/Menthol (SORE THROAT LOZENGE) 1 Each Lozenge, 1 LOZENGE MT Q1H PRN for COUGH, #20 LOZENGE Prov:CARLEEN RICHARDSEEP S. 01/06/19 Levofloxacin* (Levofloxacin*) 750 Mg Tablet, 750 MG PO DAILY, #7 TAB Prov:ALINE RICHARDS S. 01/06/19 Tamsulosin Hcl* (Flomax*) 0.4 Mg Cap.er.24h, 0.4 MG PO QPM, #30 CAP Prov:KALI BUENROSTRO MD 01/02/19 Naloxone HCl nasal spray (Narcan 4 mg/0.1 mL nasal) 4 Mg [place], 4 MG NS .Q2-3MIN for OPIOID OVERDOSE, #2 SPRAY 0 Refills [place] 0.1 mL into one nostril. Repeat with second device into other nostril after 2-3 minutes if no or minimal response Prov:KALI BUENROSTRO MD 01/02/19 Hydrocodone/Acetaminophen ([place] 10-325 Tablet) 1 Each Tablet, 1 TAB PO Q6H PRN for PAIN, #7 TAB Prov:KALI BUENROSTRO MD 01/02/19 Ibuprofen* (Motrin*) 600 Mg Tab, 600 MG PO Q6H PRN for PAIN AND OR ELEVATED TEMP, #30 TAB Prov:KALI BUENROSTRO MD 01/02/19 Reported Medications Atenolol* (Atenolol*) 25 Mg Tablet, 25 MG PO DAILY, #30 TAB 03/07/18 Insulin Glargine,Hum.rec.anlog (Basaglar Kwikpen U-100) 100 Unit/1 Ml Insuln.pen, 70 UNIT SC, EA 03/07/18 Insulin Lispro (Humalog) 100 Unit/1 Ml Cartridge, 10 UNIT SQ TID w/ meals 08/04/16 Lovastatin* (Lovastatin*) 20 Mg Tablet, 10 MG PO HS, TAB 02/24/16 Medications Current Medications Sodium Chloride 1,000 ml @ 100 mls/hr Q10H IV Last administered on 01/07/19at 11:13; Admin Dose 100 MLS/HR; Start 01/03/19 at 22:28 IV Flush (NS 3 ml) 3 ml PER PROTOCOL IV ; Start 01/03/19 at 22:30 Acetaminophen (Tylenol Tab) 650 mg Q6H PRN PO .PAIN 1-3 OR TEMP Last administered on 01/05/19 17:05; Admin Dose 650 MG; Start 01/03/19 at 22:30 Acetaminophen/ Hydrocodone Bitart ([place] (5/325)) 1 tab Q6H PRN PO .PAIN 4-6; Start 01/03/19 at 22:30 Acetaminophen/ Hydrocodone Bitart ([place] (5/325)) 2 tab Q6H PRN PO .PAIN 7-10; Start 01/03/19 at 22:30 Atenolol (Tenormin) 25 mg DAILY PO Last administered on 01/07/19 08:08; Admin Dose 25 MG; Start 01/04/19 at 09:00 Tamsulosin HCl (Flomax) 0.4 mg QPM PO Last administered on 01/06/19 20:40; Admin Dose 0.4 MG; Start 01/04/19 at 21:00 Atorvastatin Calcium (Lipitor) 10 mg DAILY@21 PO Last administered on 01/06/19 20:40; Admin Dose 10 MG; Start 01/04/19 at 21:00 Diagnostic Test (Pha) (Accu-Chek) 1 ea 02 XX Last administered on 01/04/19 01:59; Admin Dose 1 EA; Start 01/04/19 at 02:00 Insulin Glargine (Lantus) 18 units DAILY@2000 SC Last administered on 01/06/19 20:48; Admin Dose 18 UNITS; Start 01/03/19 at 23:00 Insulin Aspart (Novolog Insulin Pen) 5 unit WITH MEALS SC Last administered on 01/07/19 11:48; Admin Dose 5 UNIT; Start 01/04/19 at 07:55 Insulin Aspart (Novolog Insulin Pen) NOVOLOG *MODERATE* ALGORITHM WITH MEALS BEDTIME SC Last administered on 01/07/19 11:48; Admin Dose 4 UNIT; Start 01/04/19 at 07:55 Ondansetron HCl (Zofran Inj) 4 mg Q6H PRN IV NAUSEA AND/OR VOMITING Last administered on 01/05/19 17:05; Admin Dose 4 MG; Start 01/03/19 at 23:00 Miscellaneous Information 1 ea NOTE XX ; Start 01/03/19 at 23:30 Glucose (Glutose) 15 gm Q15M PRN PO DECREASED GLUCOSE; Start 01/03/19 at 23:30 Glucose (Glutose) 22.5 gm Q15M PRN PO DECREASED GLUCOSE; Start 01/03/19 at 23:30 Dextrose (D50w Syringe) 25 ml Q15M PRN IV DECREASED GLUCOSE; Start 01/03/19 at 23:30 Dextrose (D50w Syringe) 50 ml Q15M PRN IV DECREASED GLUCOSE; Start 01/03/19 at 23:30 Glucagon (Glucagen) 1 mg Q15M PRN IM DECREASED GLUCOSE; Start 01/03/19 at 23:30 Glucose (Glutose) 15 gm Q15M PRN BUCCAL DECREASED GLUCOSE; Start 01/03/19 at 23:30 Piperacillin Sod/ Tazobactam Sod 100 ml @ 200 mls/hr Q6 IVPB Last administered on 01/07/19at 11:12; Admin Dose 200 MLS/HR; Start 01/04/19 at 10:00 Phenol (Cepastat Lozenge) 1 lozenge Q1H PRN MT COUGH Last administered on 01/06/19at 16:40; Admin Dose 1 LOZENGE; Start 01/06/19 at 12:00 Hydralazine HCl (Apresoline) 10 mg Q6H PRN IV ELEVATED BLOOD PRESSURE; Start 01/06/19 at 12:00 Albuterol/ Ipratropium (Duoneb) 3 ml Q4H RESP THERAPY PRN HHN SHORTNESS OF BREATH; Start 01/06/19 at 19:00 Assessment/Plan Hospital Course (Demo Recall) 58-year-old female presented to the emergency room on 01/02/2019 with left flank pain nausea and vomiting. She underwent a CT scan of the abdomen and pelvis and that showed a 3 mm stone at the left ureterovesical junction.The patient was sent home on tamsulosin and antibiotic. The patient was having fever and went to the emergency room on 01/03/2019 at [facility] and was transferred here because of her insurance. The patient states she had no pain since her visit to the emergency room however she does have a headache and she has been coughing and having fever. Since her admission the patient did not pass the stone. She has been having some cough and fever. Her temperature 97.7 at 4:30 PM today Pelvic ultrasound done did not show any stone at the ureterovesical junction. That does not rule out the stone to be in the distal ureter. Clinically the patient is not having the pain from the stone. She may well have passed it and if she did not she will be able to pass it as it is a small one. From a urological standpoint she is doing well and has no symptoms therefore she may be discharged ENRIQUETA KENT MD Jan 07, 2019 12:59
[2019-01-07] MEDS ORDERED: POTASSIUM CHLORIDE (SR) 20 MEQ TAB PO STA (13:13)
[2019-01-07] MEDS ORDERED: ALBUTEROL/IPRATROPIUM (NEB) 3 ML AMP HHN STA (13:20)
[2019-01-07] MEDS ORDERED: GUAI-637 PO (13:22)
--- NOTE | 2019-01-07 13:24 | DS ---
Date/Time of Note Date/Time of Note DATE: 01/07/19 TIME: 13:23 Discharge Summary Admission/Discharge Info Admit Date/Time Jan 03, 2019 at 21:01 Discharge Date/Time Discharge Diagnosis 1. Left obstructive ureteral vesicle stone, with hydroureteronephrosis -impr oving. Urology team consulted -appreciate the recommendations 2. Sepsis: Secondary to left-sided pyelonephritis -resolved. 3. Insulin-dependent diabetes: Sugars stable, A1c equals 6.4 4. Hypertension: Stable Patient Condition: Stable Hx of Present Illness 58-year-old female with a history of hypertension, insulin-dependent diabetes who initially presented on outside hospital complaining of left flank pain. Patient was found to be febrile and had a UTI. She was transferred to [facility] for insurance reason. She was actually here a day prior with similar symptoms. At that time CT abdomen/pelvis shows obstructive 3 mm stone in the left urethrovesical junction with mild hydroureteronephrosis and moderate perinephric fat stranding. Patient was discharged from the ER that time. Patient has been febrile and tachycardic here. Hospital Course Patient was admitted and seen by urology team antibiotics. Patient's urine was strained as well. She also had some mild cough symptoms but her white blood cell count was stable, no fevers. Her culture results were negative. She was on broad-spectrum antibiotics. Over the course of her hospital stay her overall symptoms slowly improved. She was able to ambulate, tolerate a p.o. diet. Patient was initially supposed to be discharged on January 06, 2019 but she still had some cough symptoms and a chest x-ray did show some signs of atelectasis and possible early pneumonia. However she had no fevers and her white blood cell count was normal. She received breathing treatments which helped control her coughing symptoms, and she received antitussive medicines which also helped control this as well as her shortness of breath symptoms. If she remains afebrile for the rest of the day today, she will be discharged home later this evening if cleared by urology team, improved condition. See below for full list of discharge medications which will include broad-spectrum antibiotics for another 7 days at home. Home Meds Active Scripts Guaifenesin* (Robitussin*) 100 Mg/5 Ml Syrup, 200 MG PO Q4H PRN for COUGH, #1 BOTTLE Prov:RAHI,ALINE S. 01/07/19 Ondansetron Hcl* (Zofran*) 4 Mg Tablet, 4 MG PO Q6H PRN for NAUSEA AND OR VOMITING, #14 TAB Prov:MARTINE RICHARDSP S. 01/06/19 Benzocaine/Menthol (SORE THROAT LOZENGE) 1 Each Lozenge, 1 LOZENGE MT Q1H PRN for COUGH, #20 LOZENGE Prov:CARLEEN RICHARDSEEP S. 01/06/19 Levofloxacin* (Levofloxacin*) 750 Mg Tablet, 750 MG PO DAILY, #7 TAB Prov:MARTINE RICHARDSP S. 01/06/19 Tamsulosin Hcl* (Flomax*) 0.4 Mg Cap.er.24h, 0.4 MG PO QPM, #30 CAP Prov:KALI BUENROSTRO MD 01/02/19 Naloxone HCl nasal spray (Narcan 4 mg/0.1 mL nasal) 4 Mg [place], 4 MG NS .Q2-3MIN for OPIOID OVERDOSE, #2 SPRAY 0 Refills [place] 0.1 mL into one nostril. Repeat with second device into other nostril after 2-3 minutes if no or minimal response Prov:KALI BUENROSTRO MD 01/02/19 Hydrocodone/Acetaminophen ([place] 10-325 Tablet) 1 Each Tablet, 1 TAB PO Q6H PRN for PAIN, #7 TAB Prov:KALI BUENROSTRO MD 01/02/19 Ibuprofen* (Motrin*) 600 Mg Tab, 600 MG PO Q6H PRN for PAIN AND OR ELEVATED TEMP, #30 TAB Prov:KALI BUENROSTRO MD 01/02/19 Reported Medications Atenolol* (Atenolol*) 25 Mg Tablet, 25 MG PO DAILY, #30 TAB 03/07/18 Insulin Glargine,Hum.rec.anlog (Basaglar Kwikpen U-100) 100 Unit/1 Ml Insuln.pen, 70 UNIT SC, EA 03/07/18 Insulin Lispro (Humalog) 100 Unit/1 Ml Cartridge, 10 UNIT SQ TID w/ meals 08/04/16 Lovastatin* (Lovastatin*) 20 Mg Tablet, 10 MG PO HS, TAB 02/24/16 Follow-up Plan Please take your medication as prescribed, see your doctor in the clinic in the next 1 week. Primary Care Provider Not On Staff Doctor Time spent on discharge: > 30 minutes Pending Labs Laboratory Tests Test 01/06/19 17:28 01/06/19 20:58 01/07/19 06:25 01/07/19 07:50 Bedside 142 143 135 Glucose mg/dL (70-220) mg/dL (70-220) mg/dL (70-220) White Blood 7.0 Count 10^3/ul (4.8-1 0.8) Red Blood 3.92 Count 10^6/ul (4.20- 5.40) Hemoglobin 11.2 g/dl (12.0-16. 0) Hematocrit 34.0 % (37.0-47.0) Mean 86.7 Corpuscular fl (82.0-101.0 Volume ) Mean 28.6 Corpuscular pg (29.0-33.0) Hemoglobin Mean 32.9 Corpuscular g/dl (32.0-37. Hemoglobin Conc 0) ent Red Cell 12.9 Distribution % (11.5-14.5) Width Platelet Count 236 10^3/UL (140-4 15) Mean Platelet 10.2 Volume fl (7.4-10.4) Immature 0.400 Granulocytes % % (0.001-0.429 ) Neutrophils % 70.3 % (39.0-77.0) Lymphocytes % 17.6 % (15.0-51.0) Monocytes % 8.5 % (0.0-11.0) Eosinophils % 2.6 % (0.0-7.0) Basophils % 0.6 % (0.0-2.0) Nucleated Red 0.0 Blood Cells % /100WBC (0.0-0 .0) Immature 0.030 Granulocytes # 10^3/ul (0.0-0 .031) Neutrophils # 4.9 10^3/ul (1.6-7 .5) Lymphocytes # 1.2 10^3/ul (0.8-2 .9) Monocytes # 0.6 10^3/ul (0.3-0 .9) Eosinophils # 0.2 10^3/ul (0.0-0 .5) Basophils # 0.0 10^3/ul (0.0-0 .1) Nucleated Red 0.0 Blood Cells # 10^3/ul (0.0-0 .0) Sodium Level 140 mmol/L (135-14 4) Potassium 3.4 Level mmol/L (3.5-5. 1) Chloride Level 106 mmol/L (97-110 ) Carbon Dioxide 23 Level mmol/L (21-31) Anion Gap 11 (5-13) Blood Urea 9 mg/dl (7-20) Nitrogen Creatinine 0.89 mg/dl (0.44-1. 00) Est Glomerular > 60 Filtrat mL/min (>60) Rate mL/min Glucose Level 132 mg/dl (70-220) Calcium Level 8.5 mg/dl (8.4-10. 2) Test 01/07/19 11:37 Bedside 215 Glucose mg/dL (70-220) ALINE RICHARDS Jan 07, 2019 13:24
[2019-01-07] MEDS ORDERED: GUAIFENESIN 20 MG/ML 5ML CUP PO SCH (13:30)
[2019-01-07] MEDS: CEPASTAT LOZENGE MT PRN (14:00)
== END 2019-01-07 16:10 | disposition home or self-care (01) | DRG 872 ==
LOC: TEL 21:01
PROVIDERS: ADMIT Internal Medicine; ATTEND Hospitalist
DX: A41.9 Sepsis, unspecified organism (principal); N13.6 Pyonephrosis; E11.9 Type 2 diabetes mellitus without complications; I10 Essential (primary) hypertension; Z79.4 Long term (current) use of insulin
CPT/HCPCS: 71045; 74018; 76856; 80048; 80053; 80061; 81001; 82962; 83036; 83605; 83735; 84100; 85025; 87081; 87086; 94640; 94664; J0696; J1815; J2405; J2543; J3370; J7030; J7050

== ENCOUNTER 2019-03-10 22:33 | Emergency (ER) | payer OTHER ==
[~2019-03-10] VITALS: Ht 157.5 cm; Wt 59.5 kg
[~2019-03-10 22:33] MED LIST changes: +BENZ1LOZ4 MT; +GUAI-637 PO; +LEVO750T8 PO; +ONDA4TAB8 PO
[2019-03-10 22:37] VITALS: Ht 157.5 cm; Wt 59.5 kg
[2019-03-11] MEDS ORDERED: MUPI22OI2 TOP (00:44)
[2019-03-11] MEDS ORDERED: CEPH-443 PO (00:44)
--- NOTE | 2019-03-11 00:48 | ERD ---
ER Documentation Chief Complaint Chief Complaint bump inL underarm x 2 days HPI Patient is a 58-year-old female past medical history of hypertension, hyperlipidemia, presents the ER for concerns of "bump" in her left axilla x2 days. Patient denies any fevers or chills. Patient states the affected area is tender to touch. Patient states she has had abscesses in the affected area in the past and antibiotics typically help her. Patient denies any chest pain, shortness of breath, nausea, vomiting or LOC. ROS All systems reviewed and are negative except as per history of present illness. Medications Home Meds Active Scripts Mupirocin* (Bactroban*) 2% -22 Gram Oint...g., 1 APPLIC TOP BID for 7 Days, EA Prov:BERNICE HANSEN PA-C 03/11/19 Cephalexin* (Keflex*) 500 Mg Capsule, 500 MG PO TID for 7 Days, CAP Prov:BERNICE HANSEN PA-C 03/11/19 Guaifenesin* (Robitussin*) 100 Mg/5 Ml Syrup, 200 MG PO Q4H PRN for COUGH, #1 BOTTLE Prov:ALINE RICHARDS S. 01/07/19 Ondansetron Hcl* (Zofran*) 4 Mg Tablet, 4 MG PO Q6H PRN for NAUSEA AND OR VOMITING, #14 TAB Prov:ALINE RICHARDS S. 01/06/19 Benzocaine/Menthol (SORE THROAT LOZENGE) 1 Each Lozenge, 1 LOZENGE MT Q1H PRN for COUGH, #20 LOZENGE Prov:ALINE RICHARDS S. 01/06/19 Levofloxacin* (Levofloxacin*) 750 Mg Tablet, 750 MG PO DAILY, #7 TAB Prov:ALINE RICHARDS S. 01/06/19 Tamsulosin Hcl* (Flomax*) 0.4 Mg Cap.er.24h, 0.4 MG PO QPM, #30 CAP Prov:KALI BUENROSTRO MD 01/02/19 Naloxone HCl nasal spray (Narcan 4 mg/0.1 mL nasal) 4 Mg [place], 4 MG NS .Q2-3MIN for OPIOID OVERDOSE, #2 SPRAY 0 Refills [place] 0.1 mL into one nostril. Repeat with second device into other nostril after 2-3 minutes if no or minimal response Prov:KALI BUENROSTRO MD 01/02/19 Hydrocodone/Acetaminophen ([place] 10-325 Tablet) 1 Each Tablet, 1 TAB PO Q6H PRN for PAIN, #7 TAB Prov:KALI BUENROSTRO MD 01/02/19 Ibuprofen* (Motrin*) 600 Mg Tab, 600 MG PO Q6H PRN for PAIN AND OR ELEVATED TEMP, #30 TAB Prov:KALI BUENROSTRO MD 01/02/19 Reported Medications Atenolol* (Atenolol*) 25 Mg Tablet, 25 MG PO DAILY, #30 TAB 03/07/18 Insulin Glargine,Hum.rec.anlog (Basaglar Kwikpen U-100) 100 Unit/1 Ml Insuln.pen, 70 UNIT SC, EA 03/07/18 Insulin Lispro (Humalog) 100 Unit/1 Ml Cartridge, 10 UNIT SQ TID w/ meals 08/04/16 Lovastatin* (Lovastatin*) 20 Mg Tablet, 10 MG PO HS, TAB 02/24/16 Allergies Allergies: Coded Allergies: vitamin E (d-alpha tocopherol) (Verified Allergy, Unknown, 07/27/17) PMhx/Soc History of Surgery: Yes (CS x 2, right ovary removed) Anesthesia Reaction: No Hx Neurological Disorder: No Hx Respiratory Disorders: Yes (PNA) Hx Cardiac Disorders: Yes (HTN) Hx Psychiatric Problems: No Hx Miscellaneous Medical Probl: Yes (hypercholesterolemia, KIDNEY STONES) Hx Alcohol Use: No Hx Substance Use: No Hx Tobacco Use: No Smoking Status: Never smoker FmHx Family History: No diabetes Physical Exam Vitals Vital Signs Date Temp Pulse Resp B/P (MAP) Pulse Ox O2 O2 Flow FiO2 Time Delivery Rate 03/10/19 98.1 77 16 157/71 100 22:37 (99) Physical Exam GENERAL: Well-developed, well-nourished female. Appears in no acute distress. HEAD: Normocephalic, atraumatic. EYES: Pupils are equally reactive bilaterally. EOMs grossly intact. No conjuncti genoveva erythema. ENT: Moist mucous membranes. No uvula deviation. No kissing tonsils. NECK: Supple. No meningismus. Normal range of motion of the neck. LUNG: Clear to auscultation bilaterally. No rhonchi, wheezing, rales or coarse breath sounds. HEART: Regular rate and rhythm. No murmurs, rubs or gallops. EXTREMITIES: Equal pulses bilaterally. No peripheral clubbing, cyanosis or ed ivet. No unilateral leg swelling. NEUROLOGIC: Alert and oriented. Moving all four extremities without any difficulty. Normal speech. Steady gait. SKIN: 1.5 cm round erythematous abscess versus infected sebaceous cyst noted in the left axilla. No streaking. Area is tender to touch. Area is indurated, no fluctuance. Procedures/MDM MEDICAL DECISION MAKING: Patient is a 58-year-old female presents the ER for concerns of a abscess versus infected sebaceous cyst in her left axilla x2 days.. Vital signs were reviewed. Patient is afebrile. Patient was not hypoxic. Patient was hemodynamically stable. On exam, no fluctuance was noted. Patient was advised to apply warm to the affected area and return in 2 days for reevaluation. At that time incision and drainage will be considered. Patient will be discharged home with prescription of Keflex and mupirocin ointment. Low suspicion for deep space infection, cellulitis, ACS, sepsis. Patient was nontoxic, [id number] prior to discharge. PRESCRIPTION: Keflex, mupirocin ointment DISCHARGE: At this time, patient is stable for discharge and outpatient management. I have instructed the patient to follow-up with his/her primary care physician in 1-2 days. I have discussed with the patient the possibility of needing to see a specialist for further workup and imaging studies if symptoms persist. I have instructed the patient to promptly return to the ER for any new or worsening symptoms including increased pain, fever, nausea, vomiting, weakness or LOC. The patient and/or family expressed understanding of and agreement with this plan. All questions were answered. Home care instructions were provided. Patients blood pressure was elevated (>120/80) but appears stable without evidence of hypertensive emergency, hypertensive urgency or end-organ failure. I had discussion with the patient about the risks of hypertension. I have advised the patient to follow up with his/her primary care physician for outpatient monitoring and treatment for hypertension in 2-3 days. I have instructed the patient to return to the ER for any new or worsening symptoms including chest pain, shortness of breath, headache, blurred vision, confusion, nausea, vomiting or LOC. Disclaimer: Inadvertent spelling and grammatical errors are likely due to EHR/dictation software use and do not reflect on the overall quality of patient care. Also, please note that the electronic time recorded on this note does not necessarily reflect the actual time of the patient encounter. Departure Diagnosis: Primary Impression: Abscess of left axilla Condition: Fair Patient Instructions: Abscess, Antiobiotic Treatment Only Referrals: [facility] YOU HAVE RECEIVED A MEDICAL SCREENING EXAM AND THE RESULTS INDICATE THAT YOU DO NOT HAVE A CONDITION THAT REQUIRES URGENT TREATMENT IN THE EMERGENCY DEPARTMENT. FURTHER EVALUATION AND TREATMENT OF YOUR CONDITION CAN WAIT UNTIL YOU ARE SEEN IN YOUR DOCTORS OFFICE WITHIN THE NEXT 1-2 DAYS. IT IS YOUR RESPONSIBILITY TO MAKE AN APPOINTMENT FOR FOLOW-UP CARE. IF YOU HAVE A PRIMARY DOCTOR --you should call your primary doctor and schedule an appointment IF YOU DO NOT HAVE A PRIMARY DOCTOR YOU CAN CALL OUR PHYSICIAN REFERRAL HOTLINE AT IF YOU CAN NOT AFFORD TO SEE A PHYSICIAN YOU CAN CHOSE FROM THE FOLLOWING [facility] [address] [facility] [address] [facility] [facility] [address] [facility] [address] [facility] [address] [facility]. [facility]. [address] [facility]. [facility] YOU HAVE RECEIVED A MEDICAL SCREENING EXAM AND THE RESULTS INDICATE THAT YOU DO NOT HAVE A CONDITION THAT REQUIRES URGENT TREATMENT IN THE EMERGENCY DEPARTMENT. FURTHER EVALUATION AND TREATMENT OF YOUR CONDITION CAN WAIT UNTIL YOU ARE SEEN IN YOUR DOCTORS OFFICE WITHIN THE NEXT 1-2 DAYS. IT IS YOUR RESPONSIBILITY TO MAKE AN APPOINTMENT FOR FOLOW-UP CARE. IF YOU HAVE A PRIMARY DOCTOR --you should call your primary doctor and schedule and appointment IF YOU DO NOT HAVE A PRIMARY DOCTOR YOU CAN CALL OUR PHYSICIAN REFERRAL HOTLINE AT . IF YOU CAN NOT AFFORD TO SEE A PHYSICIAN YOU CAN CHOSE FROM THE FOLLOWING [facility] INSTITUTIONS: [facility] [id number] [place] [id number] [facility] [address] [place] [address] [facility] [address] [place] [address] Additional Instructions: Wound recheck advised in 2 days. Apply warm compresses to the affected area. Call your primary care doctor TOMORROW for an appointment during the next 1-2 days.See the doctor sooner or return here if your condition worsens before your appointment time. BERNICE HANSEN PA-C Mar 11, 2019 00:48
== END 2019-03-11 01:07 | disposition home or self-care (01) ==
LOC: FTE 22:33
DX: L02.412 Cutaneous abscess of left axilla (principal); I10 Essential (primary) hypertension; Z79.4 Long term (current) use of insulin
CPT/HCPCS: 99283

== ENCOUNTER 2019-03-13 07:54 | Emergency (ER) | payer OTHER ==
[~2019-03-13] VITALS: Ht 137.2 cm; Wt 58.6 kg
[~2019-03-13 07:54] MED LIST changes: +CEPH-443 PO; +MUPI22OI2 TOP
[2019-03-13 07:58] VITALS: Ht 137.2 cm; Wt 58.6 kg
--- NOTE | 2019-03-13 08:40 | ERD ---
ER Documentation Chief Complaint Chief Complaint 2 day recheck of abscess under arm. HPI 58-year-old female presents to ED for 2-day recheck of an abscess underneath her left arm. Patient denies any fevers and states that she was given an antibiotic and a topical ointment which she has been using since then. She reports moderate pain when pressed upon the abscess but otherwise does not have any other complaints today. Ports the pain as 4 out of 10 intensity and feels like a dull pain. Reports previous history of similar abscesses in her groin region. She had been taking antibiotics for the previous incidences. She was told to follow-up with a latent print examiner by her primary care provider but she has not done so. Denies any pus, excessive warmth, fevers, or any other signs of infection at this time. ROS All systems reviewed and are negative except as per history of present illness. Medications Home Meds Active Scripts Mupirocin* (Bactroban*) 2% -22 Gram Oint...g., 1 APPLIC TOP BID for 7 Days, EA Prov:BERNICE HANSEN-Nicki 03/11/19 Cephalexin* (Keflex*) 500 Mg Capsule, 500 MG PO TID for 7 Days, CAP Prov:BERNICE HANSEN-C 03/11/19 Guaifenesin* (Robitussin*) 100 Mg/5 Ml Syrup, 200 MG PO Q4H PRN for COUGH, #1 BOTTLE Prov:ALINE RICHARDS S. 01/07/19 Ondansetron Hcl* (Zofran*) 4 Mg Tablet, 4 MG PO Q6H PRN for NAUSEA AND OR VOMITI NG, #14 TAB Prov:ALINE RICHARDS S. 01/06/19 Benzocaine/Menthol (SORE THROAT LOZENGE) 1 Each Lozenge, 1 LOZENGE MT Q1H PRN for COUGH, #20 LOZENGE Prov:ALINE RICHARDS S. 01/06/19 Levofloxacin* (Levofloxacin*) 750 Mg Tablet, 750 MG PO DAILY, #7 TAB Prov:ALINE RICHARDS S. 01/06/19 Tamsulosin Hcl* (Flomax*) 0.4 Mg Cap.er.24h, 0.4 MG PO QPM, #30 CAP Prov:KALI BUENROSTRO MD 01/02/19 Naloxone HCl nasal spray (Narcan 4 mg/0.1 mL nasal) 4 Mg Rogers, 4 MG NS .Q2-3MIN for OPIOID OVERDOSE, #2 SPRAY 0 Refills Rogers 0.1 mL into one nostril. Repeat with second device into other nostril after 2-3 minutes if no or minimal response Prov:KALI BUENROSTRO MD 01/02/19 Hydrocodone/Acetaminophen ([place] 10-325 Tablet) 1 Each Tablet, 1 TAB PO Q6H PRN for PAIN, #7 TAB Prov:KALI BUENROSTRO MD 01/02/19 Ibuprofen* (Motrin*) 600 Mg Tab, 600 MG PO Q6H PRN for PAIN AND OR ELEVATED TEMP, #30 TAB Prov:KALI BUENROSTRO MD 01/02/19 Reported Medications Atenolol* (Atenolol*) 25 Mg Tablet, 25 MG PO DAILY, #30 TAB 03/07/18 Insulin Glargine,Hum.rec.anlog (Basaglar Kwikpen U-100) 100 Unit/1 Ml Insuln.pen, 70 UNIT SC, EA 03/07/18 Insulin Lispro (Humalog) 100 Unit/1 Ml Cartridge, 10 UNIT SQ TID w/ meals 08/04/16 Lovastatin* (Lovastatin*) 20 Mg Tablet, 10 MG PO HS, TAB 02/24/16 Allergies Allergies: Coded Allergies: vitamin E (d-alpha tocopherol) (Verified Allergy, Unknown, 07/27/17) PMhx/Soc History of Surgery: Yes (CS x 2, right ovary removed) Anesthesia Reaction: No Hx Neurological Disorder: No Hx Respiratory Disorders: Yes (PNA) Hx Cardiac Disorders: Yes (HTN) Hx Psychiatric Problems: No Hx Miscellaneous Medical Probl: Yes (hypercholesterolemia, KIDNEY STONES) Hx Alcohol Use: No Hx Substance Use: No Hx Tobacco Use: No Smoking Status: Never smoker FmHx Family History: diabetes; No coronary disease Physical Exam Vitals Vital Signs Date Temp Pulse Resp B/P (MAP) Pulse Ox O2 O2 Flow FiO2 Time Delivery Rate 03/13/19 98.1 63 18 146/65 99 07:58 (92) Physical Exam Const: No acute distress Head: Atraumatic Eyes: Normal Conjunctiva ENT: Normal External Ears, Nose and Mouth. Neck: Full range of motion. No meningismus. Resp: Clear to auscultation bilaterally Cardio: Regular rate and rhythm, no murmurs Abd: Soft, non tender, non distended. Normal bowel sounds Skin: 1 inch round pinkish-red lesion underneath the left armpit. No pus, solid cystic. No bleeding or discharge Back: No midline or flank tenderness Ext: No cyanosis, or edema Neur: Awake and alert Psych: Normal Mood and Affect Procedures/MDM ED COURSE: The patient was stable throughout ED course. I kept the patient informed of laboratory and diagnostic imaging results throughout the ED course. PROCEDURES: none MEDICATIONS GIVEN: [None.] MEDICAL DECISION MAKING: Patient is a 58-year-old female presenting for recheck of an abscess underneath her left armpit from 2 days ago. SHe denies any fevers, any discharge, or any excessive pain at this time. She reports that she is taking the antibiotics and ointment that she was given 2 days ago appropriately and states that it seems to be helping. She states she came here in order to get an I&D however after examining the abscess I do not think an I&D would be beneficial for the patient at this time. The abscess is very solid and not very fluctuant with fluid. I believe patient will continue to get better with outpatient antibiotics. I recommend the patient follow-up with a latent print examiner for further care and management. I told the patient to continue taking her medications that she got last visit. History & Physical and other data not c/w emergent process including deep tracking infection, sepsis, lymphangitis. Vital signs were reviewed. Patient is afebrile. Patient was not hypoxic. Patient was hemodynamically stable. Patient was told to follow up with primary care for further care and management. PRESCRIPTION: none DISCHARGE: At this time, patient is stable for discharge and outpatient management. I have instructed the patient to follow-up with his/her primary care physician in 1-2 days. I have discussed with the patient the possibility of needing to see a specialist for further workup and imaging studies if symptoms persist. I have instructed the patient to promptly return to the ER for any new or worsening symptoms including increased pain, fever, nausea, vomiting, weakness or LOC. The patient expressed understanding of and agreement with this plan. All questions were answered. Home care instructions were provided. Disclaimer: Inadvertent spelling and grammatical errors are likely due to EHR/dictation software use and do not reflect on the overall quality of patient care. Also, please note that the electronic time recorded on this note does not necessarily reflect the actual time of the patient encounter. Departure Diagnosis: Primary Impression: Wound check, abscess Additional Impressions: Abscess Hidradenitis suppurativa Condition: Fair Patient Instructions: Hidradenitis Suppurativa, Abx Referrals: [facility] YOU HAVE RECEIVED A MEDICAL SCREENING EXAM AND THE RESULTS INDICATE THAT YOU DO NOT HAVE A CONDITION THAT REQUIRES URGENT TREATMENT IN THE EMERGENCY DEPARTMENT. FURTHER EVALUATION AND TREATMENT OF YOUR CONDITION CAN WAIT UNTIL YOU ARE SEEN IN YOUR DOCTORS OFFICE WITHIN THE NEXT 1-2 DAYS. IT IS YOUR RESPONSIBILITY TO MAKE AN APPOINTMENT FOR FOLOW-UP CARE. IF YOU HAVE A PRIMARY DOCTOR --you should call your primary doctor and schedule an appointment IF YOU DO NOT HAVE A PRIMARY DOCTOR YOU CAN CALL OUR PHYSICIAN REFERRAL HOTLINE AT IF YOU CAN NOT AFFORD TO SEE A PHYSICIAN YOU CAN CHOSE FROM THE FOLLOWING [facility] [address] [facility] [address] [facility]. [facility] [address] [facility] [address] [facility] [address] [facility] [facility]. [address] [facility] [facility] YOU HAVE RECEIVED A MEDICAL SCREENING EXAM AND THE RESULTS INDICATE THAT YOU DO NOT HAVE A CONDITION THAT REQUIRES URGENT TREATMENT IN THE EMERGENCY DEPARTMENT. FURTHER EVALUATION AND TREATMENT OF YOUR CONDITION CAN WAIT UNTIL YOU ARE SEEN IN YOUR DOCTORS OFFICE WITHIN THE NEXT 1-2 DAYS. IT IS YOUR RESPONSIBILITY TO MAKE AN APPOINTMENT FOR FOLOW-UP CARE. IF YOU HAVE A PRIMARY DOCTOR --you should call your primary doctor and schedule and appointment IF YOU DO NOT HAVE A PRIMARY DOCTOR YOU CAN CALL OUR PHYSICIAN REFERRAL HOTLINE AT . IF YOU CAN NOT AFFORD TO SEE A PHYSICIAN YOU CAN CHOSE FROM THE FOLLOWING [facility]: [facility] [address] [place] [address] [facility] [address] [place] [address] [facility] [address] [place] [address] Additional Instructions: Follow-up with your primary care provider and dermatology in the next 1 to 2 days. Follow-up with dermatology in order to discuss prevention of future abscesses. Continue taking the antibiotics. Return to the ER if new onset of fever, severe pain, warmth of the abscess Call your primary care doctor TOMORROW for an appointment during the next 1-2 days.See the doctor sooner or return here if your condition worsens before your appointment time. AFIA CHOWDHURY PA-C Mar 13, 2019 08:40
== END 2019-03-13 08:51 | disposition home or self-care (01) ==
LOC: FTE 07:54
DX: L02.414 Cutaneous abscess of left upper limb (principal); L73.2 Hidradenitis suppurativa; I10 Essential (primary) hypertension; Z79.4 Long term (current) use of insulin; Z48.01 Encounter for change or removal of surgical wound dressing
CPT/HCPCS: 99281